=== PATIENT | female | born 1990 | race Hispanic/Latino ===

== ENCOUNTER 2018-05-28 05:02 | Inpatient (IN) | payer OTHER, MEDICAID, BC | END 2018-05-30 12:25 | disposition home or self-care (01) | LOC: LDH 05:02 → WSH 08:45 | PROC: 10D00Z1 Extraction of Products of Conception, Low, Open Approach (ICD-10-PCS; principal; 2018-05-28 06:30) | PROC: 0UL70ZZ Occlusion of Bilateral Fallopian Tubes, Open Approach (ICD-10-PCS; 2018-05-28 06:30) | DX: O34.211 Maternal care for low transverse scar from previous cesarean delivery (principal); N85.8 Other specified noninflammatory disorders of uterus; Z37.0 Single live birth ==

== ENCOUNTER 2024-12-13 01:24 | Inpatient (IN) | payer MEDICAID, OTHER ==
[2024-12-13] VITALS (8 sets, daily range): BP systolic 91–102; BP diastolic 58–63; PULSE 72–107; RESP 16–20; TEMP 97.5–98.2; O2SAT 99–100
[~2024-12-13] VITALS: Ht 154.9 cm; Wt 67.4 kg
[~2024-12-13 01:24] MED LIST: CEPH500B PO
--- NOTE | 2024-12-13 01:25 | NUR ---
UA CUP PROVIDED
--- NOTE | 2024-12-13 01:27 | NUR ---
CALLED FOR EKG
[2024-12-13 01:38] LABS: ADD UA MICROSCOPIC YES; APPEARANCE,URINE CLOUDY (CLEAR); GLUCOSE, URINE (UA) NEGATIVE (NEGATIVE); LEUKOCYTE ESTERASE ,URINE 25 Leu/uL (NEGATIVE); NITRATE,URINE 2+ (NEGATIVE); OCCULT BLOOD,URINE NEGATIVE (NEGATIVE)
[2024-12-13 01:40] LABS: HCG,QUALITATIVE URINE NEGATIVE (NEGATIVE)
[2024-12-13 01:41] LABS: SQUAMOUS EPITHELIAL CELL,UR FEW /HPF (0-2)
--- NOTE | 2024-12-13 01:43 | EKG ---
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
[2024-12-13 01:50] LABS: IMMATURE GRANULOCYTE ABSOLUTE 0.03 K/uL (0-1); NUCLEATED RED BLOOD CELLS 0.0 % (0.0-0.19); PLATELET COUNT (AUTO) 250 K/uL (130-400); RED BLOOD CELL COUNT(AUTO) 4.54 MIL/uL (4.00-5.50); RED CELL DISTRIBUTION WIDTH 14.8 % (11.0-15.5); WHITE BLOOD COUNT (AUTO) 9.1 K/uL (4.8-10.8)
[2024-12-13 02:00] LABS: CREATININE 0.4 mg/dL (0.5-1.0); GLOMERULAR FILTR. RATE CALC 133.0 mL/min (>90); GLUCOSE,RANDOM 102.0 mg/dL (70-105); SODIUM SERUM 141.0 mmol/L (136-145); UREA NITROGEN, BLOOD 11.0 mg/dL (7-18)
[2024-12-13 02:05] LABS: CREATINE KINASE, TOTAL 43.0 U/L (21-232)
--- NOTE | 2024-12-13 02:19 | NUR ---
REPORT TO DARREN EUCEDA
--- NOTE | 2024-12-13 02:37 | ERN ---
ED Note History of Present Illness Stated Complaint: CHEST PAIN Chief Complaint: Chest Pain Time Seen by MD: 01:20 Dictation: This is a 34-year-old who presented to the complaint midsternal stabbing chest pain for past 3 days she also reported nausea associated with. No history of a ny diaphoresis, syncopal episode palpitations. Patient is not a smoker. No history of oral contraceptives. No history of any sudden deaths in the family at a young age no history of any hypercoagulable states. No leg swelling or pain. Most of her presentation has been upper abdominal pain with cramping and midsternal radiating all the way to the back. She took Motrin and Pepcid and Gas-X with some relief of the abdominal symptoms but her chest symptoms persisted and hence she came in for evaluation. The symptoms that began 3 days ago were around 3:00 a.m. when she ate and laid down immediately. Temperature 98.8 pulse 93 respirations 16 blood pressure 124/83 with a pulse oximetry of 98% on room air Allergies: Coded Allergies: naproxen (Verified Allergy, 12/04/12) Home Meds Reported Medications Cephalexin Monohydrate (Keflex) 500 Mg Cap, 500 MG PO QID, CAP 05/28/18 Past Medical History Past Medical History: No Pertinent History Surgical History: BTL, Family History: Negative LMP: Oct 27, 2024 : 2 Para: 2 RN Note Reviewed/Agreed w/PFSH: Yes Review of System Dictation Constitutional: Negative for fever,chills, and weight loss Eyes: Negative for injury, pain,redness, and discharge ENT: Negative for injury,pain or swelling Cardiovascular: Positive for mid chest pain, denies palpitations, and edema Respiratory: Negative for shortness of breath, cough, and wheezing, Abdomen/GI: Positive for epigastric abdominal pain, , vomiting, diarrhea, and c onstipation positive for nausea Back: Negative for injury and positive for pain all over with the back : Negative for injury, bleeding and discharge MS/Extremity: Negative for injury and deformity Skin: Negative for rash, and discoloration Neuro: Negative for headache, weakness, numbness, tingling, and seizure Psych: Negative for suicide ideation, homicidal ideation, and hallucinations Initial Vital Sign VS Vital Signs Date Time Temp Pulse Resp B/P (MAP) Pulse Ox O2 Delivery O2 Flow Rate FiO2 12/13/24 01:25 98.8 93 16 124/83 98 Room Air 12/13/24 04:38 0 21 Physical Exam Dictation General: awake, alert, NAD Head/Face: Normocephalic, atraumatic Eyes: PERRL, EOMI, vision at baseline ENT: oral cavity clear, TMs clear, no signs of infection Neck: Trachea midline, supple, no nuchal rigidity Cardiovascular: RRR, normal S1/S2, No MRGs, no JVD Respiratory: CTAB, no respiratory distress, No rales or wheezes Abdomen: Soft, mild tenderness in the epigastric area and right upper quadrant, non-distended, normal bowel sounds, no guarding or rebound. Skin: Warm, dry, normal turgor, no rash MS/Extremity: Pulses equal, no cyanosis, neurovascular intact, FROM Neuro: COAx4, GCS 15, strength 5/5, CN 2-12 intact, normal cerebellar exam, normal gait, Psych: Normal behavior, mood, and affect normal Extremities-trace edema without any palpable cords, Homans sign is negative Results (Laboratory/Radiology) Laboratory/Radiology Laboratory Tests Test 12/13/24 01:30 12/13/24 01:36 Urine Color YELLOW (YELLOW) Urine Appearance CLOUDY (CLEAR) H Urine pH 6.0 (5.0-8.0) Urine Specific [place] 1.027 (1.001-1.031) Urine Protein 20 mg/dL (NEGATIVE) H Urine Glucose (UA) NEGATIVE mg/dL (NEGATIVE) Urine Ketones 150 mg/dL (NEGATIVE) H Urine Occult Blood NEGATIVE (NEGATIVE) Urine Nitrate 2+ (NEGATIVE) H Urine Bilirubin NEGATIVE mg/dL (NEGATIVE) Urine Urobilinogen 4.0 mg/dL (0.2-1.0) H Urine Leukocyte Esterase 25 Alex/uL (NEGATIVE) H Urine RBC 2-5 /HPF (0-1) H Urine WBC 11-25 /HPF (0-1) H Urine Squamous Epithelial Cells FEW /HPF (0-2) Urine Bacteria MOD /HPF (None Seen) Urine HCG, Qualitative NEGATIVE (NEGATIVE) Urine Opiates Screen NEGATIVE (NEGATIVE) Urine Barbiturates Screen NEGATIVE (NEGATIVE) Urine Phencyclidine Screen NEGATIVE (NEGATIVE) Urine Amphetamines Screen NEGATIVE (NEGATIVE) Urine Benzodiazepines Screen NEGATIVE (NEGATIVE) Urine Cocaine Screen NEGATIVE (NEGATIVE) Urine Marijuana (THC) Screen NEGATIVE (NEGATIVE) White Blood Count 9.1 K/uL (4.8-10.8) Red Blood Count 4.54 MIL/uL (4.00-5.50) Hemoglobin 11.0 g/dL (12.0-16.0) L Hematocrit 34.2 % (36-48) L Mean Corpuscular Volume 75.3 fL (79-99) L Mean Corpuscular Hemoglobin 24.2 pg (27.0-33.0) L Mean Corpuscular Hemoglobin Concent 32.2 g/dL (32.0-36.0) Red Cell Distribution Width 14.8 % (11.0-15.5) Platelet Count 250 K/uL (130-400) Mean Platelet Volume 11.3 fL (7.5-10.5) H Immature Granulocyte % (Auto) 0.3 % (0-1) Neutrophils (%) (Auto) 75.0 % (40.0-77.0) Lymphocytes (%) (Auto) 17.8 % (21.0-51.0) L Monocytes (%) (Auto) 6.1 % (3.0-13.0) Eosinophils (%) (Auto) 0.4 % (0.0-8.0) Basophils (%) (Auto) 0.4 % (0.0-5.0) Neutrophils # (Auto) 6.8 K/uL (1.8-7.7) Lymphocytes # (Auto) 1.6 K/uL (1.0-4.8) Monocytes # (Auto) 0.6 K/uL (0.1-1.0) Eosinophils # (Auto) 0.04 K/uL (0.00-0.70) Basophils # (Auto) 0.04 K/uL (0.00-0.20) Absolute Immature Granulocyte (auto 0.03 K/uL (0-1) Nucleated Red Blood Cells 0.0 % (0.0-0.19) Red Blood Cell Morphology See comments Sodium Level 141 mmol/L (136-145) Potassium Level 3.6 mmol/L (3.5-5.1) Chloride Level 103 mmol/L (101-111) Carbon Dioxide Level 27 mmol/L (21-32) Blood Urea Nitrogen 11 mg/dL (7-18) Creatinine 0.4 mg/dL (0.5-1.0) L Glomerular Filtration Rate Calc 133 mL/min (>90) Random Glucose 102 mg/dL (70-105) Total Calcium 9.3 mg/dL (8.5-10.1) Total Creatine Kinase 43 U/L (21-232) # Troponin I High Sensitivity < 4 ng/L (4-50) L Labs Reviewed?: Yes EKG Comment: Twelve lead EKG done on 12/13/2024 at 1:39 a.m. showed a heart rate of 86, DE interval 126, QRS duration 82, QT/QTC 358/429. Impression-normal sinus rhythm with no acute STT wave changes but nonspecific changes seen. No ST elevations or deep ST depressions noted. EKG rhythm strip-normal sinus rhythm nonspecific ST-T changes Interpreted by ER MD Dr. Harrison X-RAY Comment: PATIENT: SOL GARCIA MR#: [id number] : 1990 SEX: F AGE: 34 LOCATION: [facility] ORDER 5 STATUS: REG ER REPORT#: [id number] SERVICE 5 REASON: CHEST PAIN ORDERING PHYSICIAN: LELAND HARRISON MD PROCEDURE: CXR1VW - CHEST 1VW EXAM: CR Chest, 1 view CLINICAL HISTORY: Chest pain. COMPARISON: Chest radiograph dated 12/16/2014. FINDINGS: The lungs show no infiltrates or other acute findings. No pleural effusion or pneumothorax. The cardiomediastinal silhouette is within normal limits. No acute osseous abnormality. Mild levocurvature of the thoracic spine. IMPRESSION: No acute cardiopulmonary process is evident. No interval changes. /[place] DICTATED BY: DEEPALI URENA Jr., MD DATE: 12/13/24400 ELECTRONICALLY SIGNED BY: DEEPALI URENA Jr., MD DATE: 12/13/24400 ED Course ED Course Orders Procedure Category Date Status Time Vital Signs Per CPOE 12/13/24 Transmitted Routine : Chest 1vw RAD 12/13/24 Resulted 01: 12 Lead Ekg Tracing- EKG 12/13/24 Complete Technical 01:26 Maintain Iv CPOE 12/13/24 Transmitted 01:26 Iv Insertion CPOE 12/13/24 Transmitted 01: Cbc With Differential LAB 12/13/24 Complete 01:26 Creatine Kinase, Total LAB 12/13/24 Complete 01: Troponin I High LAB 12/13/24 Complete Sensitivity 01:26 Urinalysis Profile LAB 12/13/24 Complete 01:26 Basic Metabolic Panel LAB 12/13/24 Complete 01:26 ,Urine Test LAB 12/13/24 Complete 01: Culture Urine [place] 12/13/24 In Process 01:38 Drug Screen Urine LAB 12/13/24 Complete 02:36 Ceftriaxone 1g Vial PHA 12/13/24 Complete (Rocephine 1g Inj) 03:00 Morphine 2mg Syg PHA 12/13/24 Complete (Morphine 2mg Syg) 03:00 Ondansetron 4mg Inj PHA 12/13/24 Complete (Zofran 4mg Inj) 03:00 Lidocaine Hcl 2% PHA 12/13/24 Complete Viscous (Lidocaine Hcl 03:00 Mag/Alum/Simeth 30ml PHA 12/13/24 Complete (Maalox Plus 30ml) 03:00 Dicyclomine Hcl PHA 12/13/24 Complete (Bentyl 10mg/5ml 03:00 Pantoprazole 40mg Tab PHA 12/13/24 Complete (Protonix 40mg Tab 03:00 Us Abdominal Ruq\Ltd US 12/13/24 Taken 03:25 Amp/Sulbac 1.5gm+Ns PHA 12/13/24 Complete 100ml (Unasyn 1.5gm+ 04:30 Edm Admit Bridge Order ADM 12/13/24 Transmitted 04:47 Current Medications Medications (Trade) Dose Ordered Sig/Connie Route PRN Reason Start Time Stop Time Status Last Admin Dose Admin Al Hydroxide/Mg Hydroxide (MAALox PLUS 30ML) 30 ml ONCE ONCE PO 12/13/24 03:00 12/13/24 03:01 DC 12/13/24 02:57 Ampicillin Sodium/ Sulbactam Sodium (Unasyn 1.5gm+NS 100ml) 1.5 gm ONCE ONCE IV 12/13/24 04:30 12/13/24 04:32 DC 12/13/24 04:42 Ceftriaxone Sodium (ROCEphine 1G INJ) 1 gm ONCE ONCE IVPB 12/13/24 03:00 12/13/24 03:01 DC 12/13/24 02:44 Dicyclomine HCl (Bentyl 10mg/5ml Syrup) 10 mg ONCE ONCE PO 12/13/24 03:00 12/13/24 03:01 DC 12/13/24 02:58 Lidocaine HCl (Lidocaine HCl 2% Viscous) 10 ml ONCE ONCE PO 12/13/24 03:00 12/13/24 03:01 DC 12/13/24 02:58 Morphine Sulfate (morPHINE 2MG SYG) 2 mg ONCE ONCE IVP 12/13/24 03:00 12/13/24 03:01 DC 12/13/24 02:44 Ondansetron HCl (zoFRAN 4MG INJ) 4 mg ONCE ONCE IVP 12/13/24 03:00 12/13/24 03:01 DC 12/13/24 02:57 Pantoprazole Sodium (PROTonix 40MG TAB) 40 mg ONCE ONCE PO 12/13/24 03:00 12/13/24 03:01 DC 12/13/24 02:58 Vital Signs Date Time Temp Pulse Resp B/P (MAP) Pulse Ox O2 Delivery O2 Flow Rate FiO2 12/13/24 04:38 98.4 69 17 113/70 100 Room Air* 0 21 12/13/24 01:25 98.8 93 16 124/83 98 Room Air We will perform diagnostic labs, advanced imaging and administer medications according to the patient's complaint. Once the results are available, will rev iew and personally interpreted the labs to rule out any acute life-threatening emergency the trach require immediate intervention and treatment. I will then re-evaluate the patient after treatment and diagnostic exams have return to determine whether the patient requires any further testing, can safely be discharged home or need further admission to hospital for additional treatment and evaluation. Labs reviewed CBC showed a hemoglobin of 11, BNP 7 is with a normal limits. Troponins are negative. UDS is negative Urinalysis shows positive leuko esterase nitrites and increased WBCs suggestive of a UTI. I had a long discussion with the patient and discussed the possibilities that this may simply be esophagitis along with gastritis or biliary colic,. This is quite atypical for cardiac etiology in the pain lasting for a long time with a pristine EKG. Patient's Wells score is extremely low. I have recommended that we should give a trial of GI cocktail, PPI and assess the response and she is agreeable 4:20 a.m. right upper quadrant ultrasound showed very dilated gallbladder with the inflammation with a gallstone consistent with the acute cholecystitis. I updated the patient and recommended admission to the hospital for further management and she is agreeable 4:45 a.m. patient accepted by [facility] provider for hospitalist group for admission and further management HEART Score Response (Comments) Value History: Low suspicion (0) 0 EKG: Normal 0 Age: < 45yrs (0) 0 Risk Factors: No known risk factors (0) 0 Initial Troponin: Normal limit (0) 0 HEART Score Risk: Low Risk for MACE (1-3) Total 0 Medical Decision Making MDM Differential diagnosis: Atypical chest pain, cholecystitis, esophagitis gastritis, chest wall pain, hiatal hernia, biliary colic and cholelithiasis Rationale: Tests considered and ordered secondary to shared decision making include: labs, ECG and radiology Previous outside records reviewed: Old ER visits. Risk of complication and/or morbidity or mortality of patient management: None Medications-Per medication reconciliation Need for hospitalization: Patient does meet criteria for hospitalization. Need for emergency major/minor surgery: No There are no social concerns with this patient. Prescription drug management Prescriptions will include symptomatic care Patient's prior external medical records from other ER visits were reviewed by me as indicated. Prior testing and results from previous visits were reviewed. Prior tests were taken into account with medical decision making and resource utilization, independent historian/historians were used to obtain complete medical history. I independently interpreted the test that were performed, results were reviewed by me and considered findings on radiology if ordered. Medical management and examination interpretation discussions were had by me with other qualified healthcare professionals as indicated for the patient's care. Problem List Problem List: (1) Atypical chest pain (2) Esophagitis (3) Gastritis (4) UTI (urinary tract infection) DX & DISP Disposition: Inpatient Decision to Admit Time: 04:48 Departure Impression: Primary Impression: Acute cholecystitis due to biliary calculus Additional Impressions: Atypical chest pain, Gastritis, Esophagitis, UTI (urinary tract infection) Condition: Stable Additional Instructions: Patient was informed of all the diagnostic labs and procedures conducted in the emergency room today and demonstrated understanding of the results. I personally reviewed and interpreted all the diagnostic exams performed in the ER today. The patient will be admitted to the hospital for further treatment and evaluation. Disposition-admit to facility Condition-stable/guarded Course-uncertain at this time Pain status-decreased Assessment-exam unchanged Admission Certification- I certify that the patients status is appropriate and is based on my best clinical judgment and the patient's condition as documented in the medical records Referrals: HARRISON ROBLES MD (PCP) LELAND HARRISON MD Dec 13, 2024 02:37
[2024-12-13] MEDS: MAG/ALUM/SIMETH 30 ML UDCUP PO ONE (02:57)
[2024-12-13] MEDS: DICYCLOMINE HCL 10 MG/5 ML ML PO ONE (02:58)
[2024-12-13] MEDS: LIDOCAINE HCL 2% VISCOUS 15 ML UDCUP PO ONE (02:58)
[2024-12-13 03:00] LABS: AMPHET/METH SCREEN,URINE NEGATIVE (NEGATIVE); BARBITURATE SCREEN, URINE NEGATIVE (NEGATIVE); CANNABINOID SCREEN,URINE NEGATIVE (NEGATIVE); COCAINE SCREEN,URINE NEGATIVE (NEGATIVE)
--- NOTE | 2024-12-13 03:02 | HMCIMG ---
EXAM: CR Chest, 1 view CLINICAL HISTORY: Chest pain. COMPARISON: Chest radiograph dated 12/16/2014. FINDINGS: The lungs show no infiltrates or other acute findings. No pleural effusion or pneumothorax. The cardiomediastinal silhouette is within normal limits. No acute osseous abnormality. Mild levocurvature of the thoracic spine. IMPRESSION: No acute cardiopulmonary process is evident. No interval changes. /[place]
--- NOTE | 2024-12-13 04:39 | NUR ---
PATIENT REPORTS SHE DOES NOT TAKE ANY PRESCRIBED MEDICATIONS
[2024-12-13] MEDS: UNASYN 1.5GM+NS 100ML IV ONE (04:42)
--- NOTE | 2024-12-13 05:11 | HMCIMG ---
EXAM: Ultrasound Abdomen, Right Upper Quadrant. CLINICAL HISTORY: Evaluate for cholelithiasis. TECHNIQUE: Right upper quadrant sonography performed with image documentation. COMPARISON: None provided. FINDINGS: LIVER: The liver measures 14.3 cm. Normal echogenicity. No focal lesion identified. GALLBLADDER: Distended gallbladder measuring 14.7 cm with a 2 cm non-mobile stone impacted at the neck. Gallbladder wall thickening with edema (5 mm). Multiple gallstones and sludge noted. COMMON BILE DUCT (CBD): Dilated to 6 mm, which is at the upper limit of normal. Proximal ductal obstruction is suspected, possibly by the gallstones. PANCREAS: The tail is obscured by bowel gas. The visualized portion of the pancreas is unremarkable. RIGHT KIDNEY: Measures 12.4 ??? 4.5 ??? 4.3 cm. Normal renal contours. No evidence of hydronephrosis, calculi, or mass. IMPRESSION: Cholelithiasis with acute cholecystitis. Borderline dilatation of the CBD could be secondary to proximal ductal obstruction by the gallstones. /[place]
[2024-12-13] MEDS: LACTATED RINGERS 1000ML 1,000 ML IV SCH (05:28)
--- NOTE | 2024-12-13 05:28 | HP ---
[facility] HISTORY AND PHYSICAL Date of Service: Dec 13, 2024 Time of Service: 05:28 Attending/supervising physicians: Dr. Jason and Dr. Duque HISTORY OF PRESENT ILLNESS: Ms Gamal Black is a 34-year-old who presented to the complaint upper abdominal, epigastric, midsternal stabbing chest pain and nausea for past 3 days. The patient denied diaphoresis, syncopal episode, or palpitations. Patient is not a smoker. No history of oral contraceptions. Most of her presentation has been upper abdominal pain with cramping and midsternal radiating all the way to the back. She took Motrin and Pepcid and Gas-X with some relief of the abdominal symptoms but her chest symptoms persisted and hence she came in for evaluation. The symptoms that began 3 days ago were around 3:00 a.m. when she ate and laid down immediately. WBC, troponin, and chest x-ray are WNL. UA was positive for leuk EST and nitrites. ED provider reports that the sonogram showed cholelithiasis and acute cholecystitis and request admission. In ED the patient received Unasyn IV, Rocephin IV Protonix, Bentyl, Maalox, viscous lidocaine, Zofran, and morphine. I assessed the patient at bedside. The patient appeared comfortable, breathing was even, unlabored, in no distress. Patient reports the pain has improved after the medications but still feels a little sore. I informed her of labs, diagnostics, and plan of care. She verbalizes understanding and is in agreement with the plan. Plan and assessment are listed below. REVIEW OF SYSTEMS 12-point ROS reviewed with the patient. All pertinent positives mentioned above. Otherwise negative, noncontributory, non-pertinent. PAST MEDICAL HISTORY: As mentioned above LMP 10/27/2024, two para two. PAST SURGICAL HISTORY: BTL, PAST SOCIAL HISTORY: Denied alcohol, two back 0 use, illicit drug use FAMILY HISTORY: Negative Coded Allergies: naproxen (Verified Allergy, 12/04/12) PHYSICAL EXAM GENERAL APPEARANCE: The patient is awake, alert, and oriented, in no acute cardiopulmonary distress. NEUROLOGICAL: Cranial nerves II-XII grossly intact. Motor is 5/5 in bilateral upper and lower extremities proximal to distal. No sensory deficits. HEENT: Face is symmetric. Pupils are equal and reactive. Extraocular movements are intact. NECK: Supple. No JVD. No thyromegaly. No submental, submandibular, pre- /postauricular, occipital or supraclavicular lymphadenopathy. CHEST: Normal chest expansion. No Telemetry. LUNGS: Absence of any rales, rhonchi or any wheezing. CARDIOVASCULAR: Regular. S1 and S2 normal. No appreciable rubs, murmurs or gallops. ABDOMEN: Abdominal tenderness, Soft, and nondistended. There is no rebound, voluntary guarding, or rigidity. : Deferred. No [place]. EXTREMITIES: Non-edematous and not cyanotic. No clubbing. Good capillary refill. SKIN: No skin breakdown. Vital Sign (Last 24 Hours) 12/13/24 04:38 Temp 98.4 Pulse 69 Resp 17 B/P (MAP) 113/70 Pulse Ox 100 O2 Delivery Room Air* O2 Flow Rate 0 FiO2 21 LABS: Laboratory: Test 12/13/24 01:36 12/13/24 01:30 Range/Units White Blood Count 9.1 4.8-10.8 K/uL Red Blood Count 4.54 4.00-5.50 MIL/uL Hemoglobin 11.0 L 12.0-16.0 g/dL Hematocrit 34.2 L 36-48 % Mean Corpuscular Volume 75.3 L 79-99 fL Mean Corpuscular Hemoglobin 24.2 L 27.0-33.0 pg Mean Corpuscular Hemoglobin Concent 32.2 32.0-36.0 g/dL Red Cell Distribution Width 14.8 11.0-15.5 % Platelet Count 250 130-400 K/uL Mean Platelet Volume 11.3 H 7.5-10.5 fL Immature Granulocyte % (Auto) 0.3 0-1 % Neutrophils (%) (Auto) 75.0 40.0-77.0 % Lymphocytes (%) (Auto) 17.8 L 21.0-51.0 % Monocytes (%) (Auto) 6.1 3.0-13.0 % Eosinophils (%) (Auto) 0.4 0.0-8.0 % Basophils (%) (Auto) 0.4 0.0-5.0 % Neutrophils # (Auto) 6.8 1.8-7.7 K/uL Lymphocytes # (Auto) 1.6 1.0-4.8 K/uL Monocytes # (Auto) 0.6 0.1-1.0 K/uL Eosinophils # (Auto) 0.04 0.00-0.70 K/uL Basophils # (Auto) 0.04 0.00-0.20 K/uL Absolute Immature Granulocyte (auto 0.03 0-1 K/uL Nucleated Red Blood Cells 0.0 0.0-0.19 % Red Blood Cell Morphology See comments Sodium Level 141 136-145 mmol/L Potassium Level 3.6 3.5-5.1 mmol/L Chloride Level 103 101-111 mmol/L Carbon Dioxide Level 27 21-32 mmol/L Blood Urea Nitrogen 11 7-18 mg/dL Creatinine 0.4 L 0.5-1.0 mg/dL Glomerular Filtration Rate Calc 133 >90 mL/min Random Glucose 102 70-105 mg/dL Total Calcium 9.3 8.5-10.1 mg/dL Total Creatine Kinase 43 # 21-232 U/L Troponin I High Sensitivity < 4 L 4-50 ng/L Urine Color YELLOW YELLOW Urine Appearance CLOUDY H CLEAR Urine pH 6.0 5.0-8.0 Urine Specific [place] 1.027 1.001-1.031 Urine Protein 20 H NEGATIVE mg/dL Urine Glucose (UA) NEGATIVE NEGATIVE mg/dL Urine Ketones 150 H NEGATIVE mg/dL Urine Occult Blood NEGATIVE NEGATIVE Urine Nitrate 2+ H NEGATIVE Urine Bilirubin NEGATIVE NEGATIVE mg/dL Urine Urobilinogen 4.0 H 0.2-1.0 mg/dL Urine Leukocyte Esterase 25 H NEGATIVE Alex/uL Urine RBC 2-5 H 0-1 /HPF Urine WBC 11-25 H 0-1 /HPF Urine Squamous Epithelial Cells FEW 0-2 /HPF Urine Bacteria MOD None Seen /HPF Urine HCG, Qualitative NEGATIVE NEGATIVE Urine Opiates Screen NEGATIVE NEGATIVE Urine Barbiturates Screen NEGATIVE NEGATIVE Urine Phencyclidine Screen NEGATIVE NEGATIVE Urine Amphetamines Screen NEGATIVE NEGATIVE Urine Benzodiazepines Screen NEGATIVE NEGATIVE Urine Cocaine Screen NEGATIVE NEGATIVE Urine Marijuana (THC) Screen NEGATIVE NEGATIVE Current Medications Medications (Trade) Dose Ordered Sig/Connie Route PRN Reason Start Time Stop Time Status Last Admin Dose Admin Acetaminophen (TYLenol 325MG TAB) 650 mg Q6H PRN PO FEVER/MILD PAIN LEVEL 1-3 12/13/24 05:30 01/12/25 05:29 Acetaminophen (TYLenol 650MG SUPPOSITORY) 650 mg Q6H PRN RC FEVER / MILD PAIN 1-3 IF NPO 12/13/24 05:30 01/12/25 05:29 Docusate Sodium (COLace 100MG CAP) 100 mg BID PRN PO c 12/13/24 05:30 01/12/25 05:29 Ketorolac Tromethamine (toRADol) 30 mg Q6H PRN IM SEVERE PAIN (7-10) 12/13/24 05:30 12/18/24 05:29 UNV Labetalol HCl (TRANdate 20MG SYG) 10 mg Q2H PRN IV SBP GREATER THAN 160 12/13/24 05:30 01/12/25 05:29 Lactated Ringer's 1,000 ml @ 75 mls/hr [id number] IV 12/13/24 05:30 01/12/25 05:29 12/13/24 05:28 75 MLS/HR Lactulose (Constulose 20gm/ 30ml Udcup) 20 gm Q6H PRN PO CONSTIPATION 12/13/24 05:30 01/12/25 05:29 Morphine Sulfate (morPHINE 4MG SYG) 4 mg Q4H PRN IVP SEVERE PAIN (7-10) 12/13/24 05:30 12/20/24 05:29 Ondansetron HCl (zoFRAN 4MG INJ) 4 mg Q6H PRN IVP NAUSEA/VOMITING 12/13/24 05:30 01/12/25 05:29 Temazepam (restORIL 15 MG CAP) 15 mg HS PRN PO INSOMNIA/SLEEP 12/13/24 05:30 01/12/25 05:29 DIAGNOSTICS / RADIOLOGY: [ ] ASSESSMENT: Acute cholecystitis with biliary calculus, POA Acute abdominal pain/Epigastric pain/sternal chest pain, POA Acute complicated cystitis, POA Anemia PLAN: -Admit to medical floor. -Consult general surgeon. -Keep NPO for now. -Start LR at 75 mL an hour. -Zosyn 3.375 g IV Q8H. -PRN medications for: Pain management, fever, hypertension, N/V, constipation. -prn glucometer checks. -Blood pressure checks every 4 hours and as needed. -Reconcile home medications once available. - Monitor renal and liver function. -Monitor electrolytes and treat accordingly PRN -AM labs. -GI and DVT prophylaxis -Further plan/orders per hospitalization course. ADVANCED CARE PLANNING 1. Which of the following were discussed? Hospice Care - No Therapeutic options - Yes Advance Directives - Yes Other discussions - 2. Discussed with who? Patient 3. Voluntary nature of this service was explained to the patient? Yes 4. Amount of time spent - _ Over 35 minutes 5. Reviewed by Physician? (if this service was performed by BENEDICTO) Yes ATTESTATION BY PHYSICIAN I have seen and examined the patient. I reviewed the documentation, medical decision making, and treatment plan as noted by the mid-level provider above. I agree with the findings and plan of care. BRODY GAMINO [facility] Dec 13, 2024 05:28
[2024-12-13] MEDS ORDERED: DEXTROSE 50%-WATER 50 ML DISP.SYRIN IV PRN (06:00)
[2024-12-13] MEDS ORDERED: PoTASSium chl 10% ELIXIR 20MEQ 20 MEQ/15 ML UDCUP PO PRN (06:00)
[2024-12-13] MEDS ORDERED: GLUCAGON 1MG KIT 1 MG ML IM PRN (06:00)
--- NOTE | 2024-12-13 06:29 | NUR ---
DR BRIJESH CLARK MADE AWARE OF SURGICAL CONSULT
--- NOTE | 2024-12-13 07:44 | NUR ---
Patient stated she does not take any home medications.
--- NOTE | 2024-12-13 08:12 | NUR ---
Called housekeeping for hospital bed.
--- NOTE | 2024-12-13 08:41 | NUR ---
Changed stetcher to hospital bed
--- NOTE | 2024-12-13 09:23 | NUR ---
Patient is NPO. Potasium 3.6. Did not cover due to protocol IV starts at below 3.2.
--- NOTE | 2024-12-13 09:24 | NUR ---
Report given to Mrs. Marilu PAGE. Discussed plan of care, medication and pending consult with Dr. Cooper. Mys. Michel verbalized understanding. SBAR in chart. Patient transported in hospital bed.
[2024-12-13] MEDS: ZOSYN 3.375GM +NS 50ML IVPB SCH (12:30)
[2024-12-13] MEDS ORDERED: 0.9%NACL 50ML IV SCH (13:00)
--- NOTE | 2024-12-13 15:58 | PN ---
[facility] PROGRESS NOTE Date of Service: Dec 13, 2024 Time of Service: 15:35 SUBJECTIVE: 12/13/24: Patient has been moved from the emergency department to room 306. Patient examined in the room with family present. Patient appeared comfortable, in no distress. Patient reports the pain has improved after the medications but still feels a little sore. She does not have any nausea. Waiting on the surgeon Dr. Smith for further treatment recommendations. She is currently on Zosyn IV, Toradol for pain. REVIEW OF SYSTEMS CONSTITUTIONAL: Denies fever, chills, or night sweats. No unintentional weight loss reported. NEUROLOGICAL: Denies headache, amaurosis fugax, motor weakness, sensory deficit, vertigo/spinning sensation, gait abnormalities, or tremors. ENT: No hearing loss, otalgia, otorrhea, rhinitis, rhinorrhea, hoarseness, or sore throat. CARDIOVASCULAR: Denies any exertional angina, dyspnea on exertion, orthopnea, paroxysmal nocturnal dyspnea PULMONARY: shortness of breath, Denies any cough, phlegm/sputum, hemoptysis, pleuritic chest pain. GASTROINTESTINAL: Denies any type of dysphagia to either liquids or solids. Denies nausea, vomiting, pyrosis, early satiety, abdominal pain, diarrhea, constipation, or changes in stool consistency or caliber. GENITOURINARY: Denies frequency, urgency, nocturia, hematuria or incontinence DERMATOLOGIC: Denies rashes or pruritus. PHYSICAL EXAM GENERAL APPEARANCE: The patient is awake, alert, and oriented, in no acute cardiopulmonary distress. NEUROLOGICAL: Motor is 5/5 in bilateral upper and lower extremities proximal to distal. No sensory deficits. HEENT: Face is symmetric. Pupils are equal and reactive. Extraocular movements are intact. NECK: Supple. No JVD. No lymphadenopathy. CHEST: Normal chest expansion. No Telemetry. LUNGS: Absence of any rales, rhonchi or any wheezing. CARDIOVASCULAR: Regular. S1 and S2 normal. No appreciable rubs, murmurs or gallops. ABDOMEN: Abdominal tenderness, Soft, and nondistended. There is no rebound, voluntary guarding, or rigidity. : Deferred. No Wright. EXTREMITIES: Non-edematous and not cyanotic. No clubbing. Good capillary refill. SKIN: No skin breakdown. Vital Signs (last 8hr) Date Time Temp Pulse Resp B/P (MAP) Pulse Ox O2 Delivery O2 Flow Rate FiO2 12/13/24 12:00 97.9 73 18 102/63 100 Room Air 21 12/13/24 10:00 Room Air* 0 21 12/13/24 09:40 98.2 74 19 96/59 99 Room Air 21 12/13/24 08:50 100 Room Air* 0 21 LABS: Laboratory: Test 12/13/24 01:36 12/13/24 01:30 Range/Units White Blood Count 9.1 4.8-10.8 K/uL Red Blood Count 4.54 4.00-5.50 MIL/uL Hemoglobin 11.0 L 12.0-16.0 g/dL Hematocrit 34.2 L 36-48 % Mean Corpuscular Volume 75.3 L 79-99 fL Mean Corpuscular Hemoglobin 24.2 L 27.0-33.0 pg Mean Corpuscular Hemoglobin Concent 32.2 32.0-36.0 g/dL Red Cell Distribution Width 14.8 11.0-15.5 % Platelet Count 250 130-400 K/uL Mean Platelet Volume 11.3 H 7.5-10.5 fL Immature Granulocyte % (Auto) 0.3 0-1 % Neutrophils (%) (Auto) 75.0 40.0-77.0 % Lymphocytes (%) (Auto) 17.8 L 21.0-51.0 % Monocytes (%) (Auto) 6.1 3.0-13.0 % Eosinophils (%) (Auto) 0.4 0.0-8.0 % Basophils (%) (Auto) 0.4 0.0-5.0 % Neutrophils # (Auto) 6.8 1.8-7.7 K/uL Lymphocytes # (Auto) 1.6 1.0-4.8 K/uL Monocytes # (Auto) 0.6 0.1-1.0 K/uL Eosinophils # (Auto) 0.04 0.00-0.70 K/uL Basophils # (Auto) 0.04 0.00-0.20 K/uL Absolute Immature Granulocyte (auto 0.03 0-1 K/uL Nucleated Red Blood Cells 0.0 0.0-0.19 % Red Blood Cell Morphology See comments Sodium Level 141 136-145 mmol/L Potassium Level 3.6 3.5-5.1 mmol/L Chloride Level 103 101-111 mmol/L Carbon Dioxide Level 27 21-32 mmol/L Blood Urea Nitrogen 11 7-18 mg/dL Creatinine 0.4 L 0.5-1.0 mg/dL Glomerular Filtration Rate Calc 133 >90 mL/min Random Glucose 102 70-105 mg/dL Total Calcium 9.3 8.5-10.1 mg/dL Total Creatine Kinase 43 # 21-232 U/L Troponin I High Sensitivity < 4 L 4-50 ng/L Urine Color YELLOW YELLOW Urine Appearance CLOUDY H CLEAR Urine pH 6.0 5.0-8.0 Urine Specific [place] 1.027 1.001-1.031 Urine Protein 20 H NEGATIVE mg/dL Urine Glucose (UA) NEGATIVE NEGATIVE mg/dL Urine Ketones 150 H NEGATIVE mg/dL Urine Occult Blood NEGATIVE NEGATIVE Urine Nitrate 2+ H NEGATIVE Urine Bilirubin NEGATIVE NEGATIVE mg/dL Urine Urobilinogen 4.0 H 0.2-1.0 mg/dL Urine Leukocyte Esterase 25 H NEGATIVE Alex/uL Urine RBC 2-5 H 0-1 /HPF Urine WBC 11-25 H 0-1 /HPF Urine Squamous Epithelial Cells FEW 0-2 /HPF Urine Bacteria MOD None Seen /HPF Urine HCG, Qualitative NEGATIVE NEGATIVE Urine Opiates Screen NEGATIVE NEGATIVE Urine Barbiturates Screen NEGATIVE NEGATIVE Urine Phencyclidine Screen NEGATIVE NEGATIVE Urine Amphetamines Screen NEGATIVE NEGATIVE Urine Benzodiazepines Screen NEGATIVE NEGATIVE Urine Cocaine Screen NEGATIVE NEGATIVE Urine Marijuana (THC) Screen NEGATIVE NEGATIVE Current Medications Medications (Trade) Dose Ordered Sig/Connie Route PRN Reason Start Time Stop Time Status Last Admin Dose Admin Acetaminophen (TYLenol 325MG TAB) 650 mg Q6H PRN PO FEVER/MILD PAIN LEVEL 1-3 12/13/24 05:30 01/12/25 05:29 Acetaminophen (TYLenol 650MG SUPPOSITORY) 650 mg Q6H PRN RC FEVER / MILD PAIN 1-3 IF NPO 12/13/24 05:30 01/12/25 05:29 Ceftriaxone Sodium (Rocephin 2gm Inj) 2 gm Q24H IVPB 12/14/24 03:00 12/13/24 05:59 DC Dextrose (D50w) 50 ml AD PRN IV HYPOGLYCEMIA PROTOCOL 12/13/24 06:00 01/12/25 05:59 Docusate Sodium (COLace 100MG CAP) 100 mg BID PRN PO c 12/13/24 05:30 01/12/25 05:29 Glucagon (Glucagon 1mg Kit) 1 mg AD PRN IM HYPOGLYCEMIA PROTOCOL 12/13/24 06:00 01/12/25 05:59 Ketorolac Tromethamine (toRADol) 30 mg Q6H PRN IM SEVERE PAIN (7-10) 12/13/24 05:30 12/18/24 05:29 12/13/24 08:20 30 MG Labetalol HCl (TRANdate 20MG SYG) 10 mg Q2H PRN IV SBP GREATER THAN 160 12/13/24 05:30 01/12/25 05:29 Lactated Ringer's 1,000 ml @ 75 mls/hr [id number] IV 12/13/24 05:30 01/12/25 05:29 12/13/24 05:28 75 MLS/HR Lactulose (Constulose 20gm/ 30ml Udcup) 20 gm Q6H PRN PO CONSTIPATION 12/13/24 05:30 01/12/25 05:29 Magnesium Sulfate 50 ml @ 0 mls/hr PROTOCOL PRN IV MAGNESIUM PROTOCOL 12/13/24 06:00 01/12/25 05:59 Morphine Sulfate (morPHINE 4MG SYG) 4 mg Q4H PRN IVP SEVERE PAIN (7-10) 12/13/24 05:30 12/20/24 05:29 12/13/24 12:30 4 MG Ondansetron HCl (zoFRAN 4MG INJ) 4 mg Q6H PRN IVP NAUSEA/VOMITING 12/13/24 05:30 01/12/25 05:29 Piperacillin Sod/ Tazobactam Sod (Zosyn 3.375gm+NS 50ml) 3.375 gm Q8H IVPB 12/13/24 13:00 12/23/24 12:59 12/13/24 12:30 3.375 GM Potassium Chloride 100 ml @ 100 mls/hr AD PRN IV POTASSIUM PROTOCOL 12/13/24 06:00 01/12/25 05:59 Potassium Chloride (K-Dur/Klor-Con 20meq) 20 meq AD PRN PO POTASSIUM PROTOCOL 12/13/24 06:00 01/12/25 05:59 Potassium Chloride (KCl 10% Elixir 20meq/15ml) 20 meq AD PRN PO POTASSIUM PROTOCOL 12/13/24 06:00 01/12/25 05:59 Sodium Chloride (NS 50ml) 50 ml AD IV 12/13/24 13:00 12/13/24 05:58 DC Temazepam (restORIL 15 MG CAP) 15 mg HS PRN PO INSOMNIA/SLEEP 12/13/24 05:30 01/12/25 05:29 DIAGNOSTICS / RADIOLOGY: [facility] [address] [place] [address] IMAGING REPORT Addendum PATIENT: SOL GARCIA MR#: [id number] : 1990 SEX: F AGE: 34 LOCATION: [facility] ORDER 5 STATUS: ADM IN REPORT#: [id number] SERVICE 4 REASON: evaluate cholelithiasis ORDERING PHYSICIAN: AILYN HORTON MD PROCEDURE: [id number] - US ABDOMINAL RUQ\LTD ADDENDUM REPORT ADDENDUM: Results were shared by telephone at 06:13 am on 12-13-24 and acknowledged by Ailyn Jimenez. /[facility] EXAM: Ultrasound Abdomen, Right Upper Quadrant. CLINICAL HISTORY: Evaluate for cholelithiasis. TECHNIQUE: Right upper quadrant sonography performed with image documentation. COMPARISON: None provided. FINDINGS: LIVER: The liver measures 14.3 cm. Normal echogenicity. No focal lesion identified. GALLBLADDER: Distended gallbladder measuring 14.7 cm with a 2 cm non-mobile stone impacted at the neck. Gallbladder wall thickening with edema (5 mm). Multiple gallstones and sludge noted. COMMON BILE DUCT (CBD): Dilated to 6 mm, which is at the upper limit of normal. Proximal ductal obstruction is suspected, possibly by the gallstones. PANCREAS: The tail is obscured by bowel gas. The visualized portion of the pancreas is unremarkable. RIGHT KIDNEY: Measures 12.4 ??? 4.5 ??? 4.3 cm. Normal renal contours. No evidence of hydronephrosis, calculi, or mass. IMPRESSION: Cholelithiasis with acute cholecystitis. Borderline dilatation of the CBD could be secondary to proximal ductal obstruction by the gallstones. /[facility] DICTATED BY: DEEPALI URENA Jr., MD DATE: 12/13/24613 ELECTRONICALLY SIGNED BY: DATE: EXAM: Ultrasound Abdomen, Right Upper Quadrant. CLINICAL HISTORY: Evaluate for cholelithiasis. TECHNIQUE: Right upper quadrant sonography performed with image documentation. COMPARISON: None provided. FINDINGS: LIVER: The liver measures 14.3 cm. Normal echogenicity. No focal lesion identified. GALLBLADDER: Distended gallbladder measuring 14.7 cm with a 2 cm non-mobile stone impacted at the neck. Gallbladder wall thickening with edema (5 mm). Multiple gallstones and sludge noted. COMMON BILE DUCT (CBD): Dilated to 6 mm, which is at the upper limit of normal. Proximal ductal obstruction is suspected, possibly by the gallstones. PANCREAS: The tail is obscured by bowel gas. The visualized portion of the pancreas is unremarkable. RIGHT KIDNEY: Measures 12.4 ??? 4.5 ??? 4.3 cm. Normal renal contours. No evidence of hydronephrosis, calculi, or mass. IMPRESSION: Cholelithiasis with acute cholecystitis. Borderline dilatation of the CBD could be secondary to proximal ductal obstruction by the gallstones. /[place] DICTATED BY: DEEPALI URENA Jr., MD DATE: 12/13/24608 ELECTRONICALLY SIGNED BY: DEEPALI RUENA Jr., MD DATE: 12/13/24608 ASSESSMENT: Acute cholecystitis with biliary calculus, POA Acute abdominal pain/Epigastric pain/sternal chest pain, POA Acute complicated cystitis, POA Anemia PLAN: Acute cholecystitis with biliary calculus, POA * Patient placed on Zosyn and Toradol for pain * Abdominal ultrasound shows cholelithiasis with acute cholecystitis * Consulted surgery and waiting on their recommendation Acute complicated cystitis, POA * Patient placed on ceftriaxone IV * Patient's blood has been sent for culture, initially shows Gram-negative rods Anemia * Patient's hemoglobin at 11 * No therapy prescribed at this time but will keep an eye ATTESTATION BY PHYSICIAN I have seen and examined the patient. I reviewed the documentation, medical decision making, and treatment plan as noted by the resident provider above. I agree with the findings and plan of care. Garcia Gordillo MD, ABHINAV MD Dec 13, 2024 15:58
[2024-12-13] MEDS: PoTASSium chloRIDE 20MEQ ER 20 MEQ ERTAB PO PRN (20:16)
[2024-12-13] MEDS: LACTULOSE 20 GM/30 ML UDCUP PO PRN (22:04)
[2024-12-13] MEDS ORDERED: SIME80TA PO (23:16)
--- NOTE | 2024-12-13 23:29 | NUR ---
hypotension patient having low blood pressure of 85/50 with heart rate of 83. we checked it multiple times and manually. patient is asymptomatic. she is laying in bed with her legs elevated. I paged evangelist guillen np and she ordered 1 liter bolus of normal saline. will continue to monitor patient.
[2024-12-13] MEDS: 0.9%NACL 1000ML 1,000 ML IV SCH (23:32)
--- NOTE | 2024-12-13 23:34 | NUR ---
nurse note patient alert and oriented times 4. at bedside. plan of care discussed with them and they verbalized understanding. patient walking to the restroom with no issues. patient verbalizes no pain after the mrcp just "tiredness." her bp ranges in the 80's/40's. paged evangelist guillen and she ordered 1 liter bolus of Normal saline. patient is laying calmly in bed on her phone. her left home. call light within reach, bed alarm on, 2 side rails up. will continue to monitor patient.
[2024-12-14] VITALS (13 sets, daily range): BP systolic 84–103; BP diastolic 44–76; PULSE 68–102; RESP 16–19; TEMP 97.4–99; O2SAT 98
--- NOTE | 2024-12-14 01:06 | NUR ---
hypotension paged evangelist guillen, pharmacy technician inpatient for bp of 84/44 with heart rate 83. she ordered midodrine 10 mg tid and another 1 liter of ns bolus. she also ordered cbc, cmp, mag, type and screen stat labs to monitor for bleeding. will continue to monitor patient.
[2024-12-14 01:20] LABS: IMMATURE GRANULOCYTE ABSOLUTE 0.01 K/uL (0-1); NUCLEATED RED BLOOD CELLS 0.0 % (0.0-0.19); PLATELET COUNT (AUTO) 208 K/uL (130-400); RED BLOOD CELL COUNT(AUTO) 4.08 MIL/uL (4.00-5.50); RED CELL DISTRIBUTION WIDTH 15.2 % (11.0-15.5); WHITE BLOOD COUNT (AUTO) 6.9 K/uL (4.8-10.8)
[2024-12-14] MEDS ORDERED: 0.9%NACL 1000ML 1,000 ML IV SCH (01:30)
[2024-12-14 01:33] LABS: CREATININE 0.5 mg/dL (0.5-1.0); GLOMERULAR FILTR. RATE CALC 126.0 mL/min (>90); GLUCOSE,RANDOM 76.0 mg/dL (70-105); SODIUM SERUM 141.0 mmol/L (136-145); UREA NITROGEN, BLOOD 9.0 mg/dL (7-18)
[2024-12-14 01:37] LABS: ASPARTATE AMINOTRANSFERASE 22.0 U/L (10-37); TOTAL PROTEIN, SERUM 6.3 g/dL (6.0-8.3)
--- NOTE | 2024-12-14 02:10 | HMCIMG ---
EXAM: MRCP with and without Intravenous Contrast. CLINICAL HISTORY: Cholecystitis. TECHNIQUE: Multisequence, multiplanar magnetic resonance images of the abdomen. Intravenous contrast was administered. COMPARISON: Ultrasound abdomen right upper quadrant of the same date. FINDINGS: The gallbladder is grossly distended, measuring 12.5 cm in the maximum craniocaudal dimension. There is a 2.6 cm calculus with edematous moreno and pericholecystic fluid. No intrahepatic biliary ductal dilation is present. The cystic duct and right and left hepatic ducts are unremarkable. The common bile duct is nondilated. No common bile duct obstruction. Normal pancreatic duct. No biliary strictures are present. No choledocholithiasis. No pleural effusion. There is no focal abnormality appreciated within the liver, pancreas, spleen, adrenals, or kidneys. There is no obvious bowel wall thickening. No abdominal aortic aneurysm. No lymphadenopathy. Trace fluid in the hepatorenal pouch. There is no acute osseous abnormality. IMPRESSIONS: 1. Cholelithiasis with cholecystitis. 2. No choledocholithiasis. 3. Streak fluid in the hepatorenal pouch. No gross interval changes. /Monique
[2024-12-14] MEDS: MAGNESIUM 2GM PREMIX 50ML 50 ML IV PRN (02:24)
[2024-12-14 04:29] LABS: IMMATURE GRANULOCYTE ABSOLUTE 0.01 K/uL (0-1); NUCLEATED RED BLOOD CELLS 0.0 % (0.0-0.19); PLATELET COUNT (AUTO) 191 K/uL (130-400); RED BLOOD CELL COUNT(AUTO) 3.78 MIL/uL (4.00-5.50); RED CELL DISTRIBUTION WIDTH 15.2 % (11.0-15.5); WHITE BLOOD COUNT (AUTO) 5.8 K/uL (4.8-10.8)
[2024-12-14 04:53] LABS: ASPARTATE AMINOTRANSFERASE 22.0 U/L (10-37); CREATININE 0.3 mg/dL (0.5-1.0); GLOMERULAR FILTR. RATE CALC 143.0 mL/min (>90); GLUCOSE,RANDOM 75.0 mg/dL (70-105); PHOSPHORUS 2.8 mg/dL (2.5-4.9); SODIUM SERUM 139.0 mmol/L (136-145); TOTAL PROTEIN, SERUM 5.9 g/dL (6.0-8.3); UREA NITROGEN, BLOOD 8.0 mg/dL (7-18)
--- NOTE | 2024-12-14 08:36 | NUR ---
[facility] CALLED [facility] FOR TIME FOR [facility], PER [facility] UNABLE TO GET PT IN THIS MORNING UNTIL LATER IN AFTERNOON. OK TO GIVE ONLY MIDODRINE PO
--- NOTE | 2024-12-14 08:41 | NUR ---
ROUNDS MOLINA AT BEDSIDE. MD AWARE OF BP 85/50. HR 84
[2024-12-14] MEDS: LACTATED RINGERS 1000ML 1,000 ML IV SCH (08:45)
[2024-12-14] MEDS ORDERED: MAGNESIUM 2GM PREMIX 50ML 50 ML IV SCH (10:00)
--- NOTE | 2024-12-14 10:49 | NUR ---
DCP: HOME Pt currently lives with lauren Black [phone] and 3 kids. Pt does not report any insecurities with food, intermediate, and/or utilities. Pt does not have any DME, home health, or provider services. Pt is able to complete ADLs independently. Pt does not have a PCP however states that she has already started looking into who is covered by her insurance and did not feel that there was a need for community resources. Pt uses [facility] on [address] for any RX needs. At [place] pt will want to go home and family can assist with transportation. Addendum: 12/14/24 at 1051 by YOSELIN ANAYA SS Amended: Links added.
--- NOTE | 2024-12-14 11:46 | NUR ---
HIDA PT TAKEN FOR HIDA SCAN
[2024-12-14] MEDS: 0.9%NACL 1000ML 1,000 ML IV ONE (12:03)
--- NOTE | 2024-12-14 13:20 | NUR ---
HIDA SCAN PT RETURN FROM HIDA SCAN PER [facility] DO NOT FEED YET. STILL PENDING SECOND SCAN
[2024-12-14] MEDS: LACTATED RINGERS 1000ML 1,000 ML IV ONE (14:02)
--- NOTE | 2024-12-14 15:18 | PN ---
[facility] PROGRESS NOTE Date of Service: Dec 14, 2024 Time of Service: 15:18 SUBJECTIVE: 12/13/24: Patient has been moved from the emergency department to room 306. Patient examined in the room with family present. Patient appeared comfortable, in no distress. Patient reports the pain has improved after the medications but still feels a little sore. She does not have any nausea. Waiting on the surgeon Dr. Smith for further treatment recommendations. She is currently on Zosyn IV, Toradol for pain. 12/14/24: Patient was examined today in her room with family present, she was lying comfortably without any pain or distress. Her vitals were within range except for her blood pressure which was around 85/50 so we started her on a bolus of sodium chloride and 10 mg midodrine. Her lab work showed her WBC at 5.8 her hemoglobin decreased from 11-9.1, her magnesium was also low at 1.7 So we started her on magnesium protocol and gave her magnesium supplementation. Her a procalcitonin and lactic acid the normal at 0.8 and less than 0.05 respectively. C-reactive protein was high at 21.30. Her urinary culture came back positive for Klebsiella pneumoniae sensitive to everything except nitrofurantoin. An MRCP was performed which showed cholelithiasis with cholecystitis and no choledocholithiasis. She also underwent a HIDA scan and we are awaiting results. Per surgery the waiting on the results to decide further recommendations. REVIEW OF SYSTEMS CONSTITUTIONAL: Denies fever, chills, or night sweats. No unintentional weight loss reported. NEUROLOGICAL: Denies headache, amaurosis fugax, motor weakness, sensory deficit, vertigo/spinning sensation, gait abnormalities, or tremors. ENT: No hearing loss, otalgia, otorrhea, rhinitis, rhinorrhea, hoarseness, or sore throat. CARDIOVASCULAR: Denies any exertional angina, dyspnea on exertion, orthopnea, paroxysmal nocturnal dyspnea PULMONARY: shortness of breath, Denies any cough, phlegm/sputum, hemoptysis, pleuritic chest pain. GASTROINTESTINAL: Denies any type of dysphagia to either liquids or solids. Denies nausea, vomiting, pyrosis, early satiety, abdominal pain, diarrhea, constipation, or changes in stool consistency or caliber. GENITOURINARY: Denies frequency, urgency, nocturia, hematuria or incontinence DERMATOLOGIC: Denies rashes or pruritus. PHYSICAL EXAM GENERAL APPEARANCE: The patient is awake, alert, and oriented, in no acute cardiopulmonary distress. NEUROLOGICAL: Motor is 5/5 in bilateral upper and lower extremities proximal to distal. No sensory deficits. HEENT: Face is symmetric. Pupils are equal and reactive. Extraocular movements are intact. NECK: Supple. No JVD. No lymphadenopathy. CHEST: Normal chest expansion. No Telemetry. LUNGS: Absence of any rales, rhonchi or any wheezing. CARDIOVASCULAR: Regular. S1 and S2 normal. No appreciable rubs, murmurs or gallops. ABDOMEN: Abdominal tenderness, Soft, and nondistended. There is no rebound, voluntary guarding, or rigidity. : Deferred. No Wright. EXTREMITIES: Non-edematous and not cyanotic. No clubbing. Good capillary refill. SKIN: No skin breakdown. Vital Signs (last 8hr) Date Time Temp Pulse Resp B/P (MAP) Pulse Ox O2 Delivery O2 Flow Rate FiO2 12/14/24 12:03 98.6 75 19 98/56 97 Room Air 12/14/24 08:00 98.2 84 19 85/50 98 Room Air LABS: Laboratory: Test 12/14/24 13:37 12/14/24 04:17 12/13/24 01:36 12/13/24 01:30 Range/Units Lactic Acid Level 0.8 0.8-2.5 mmol/L C-Reactive Protein, Quantitative 21.30 H 0.5-3.0 mg/L Procalcitonin < 0.05 L 0.05-0.5 ng/mL White Blood Count 5.8 4.8-10.8 K/uL Red Blood Count 3.78 L 4.00-5.50 MIL/uL Hemoglobin 9.1 L 12.0-16.0 g/dL Hematocrit 29.6 L 36-48 % Mean Corpuscular Volume 78.3 L 79-99 fL Mean Corpuscular Hemoglobin 24.1 L 27.0-33.0 pg Mean Corpuscular Hemoglobin Concent 30.7 L 32.0-36.0 g/dL Red Cell Distribution Width 15.2 11.0-15.5 % Platelet Count 191 130-400 K/uL Mean Platelet Volume 11.3 H 7.5-10.5 fL Immature Granulocyte % (Auto) 0.2 0-1 % Neutrophils (%) (Auto) 54.3 40.0-77.0 % Lymphocytes (%) (Auto) 35.8 21.0-51.0 % Monocytes (%) (Auto) 7.8 3.0-13.0 % Eosinophils (%) (Auto) 1.4 0.0-8.0 % Basophils (%) (Auto) 0.5 0.0-5.0 % Neutrophils # (Auto) 3.1 1.8-7.7 K/uL Lymphocytes # (Auto) 2.1 1.0-4.8 K/uL Monocytes # (Auto) 0.5 0.1-1.0 K/uL Eosinophils # (Auto) 0.08 0.00-0.70 K/uL Basophils # (Auto) 0.03 0.00-0.20 K/uL Absolute Immature Granulocyte (auto 0.01 0-1 K/uL Nucleated Red Blood Cells 0.0 0.0-0.19 % Sodium Level 139 136-145 mmol/L Potassium Level 4.4 3.5-5.1 mmol/L Chloride Level 108 101-111 mmol/L Carbon Dioxide Level 25 21-32 mmol/L Blood Urea Nitrogen 8 7-18 mg/dL Creatinine 0.3 L 0.5-1.0 mg/dL Glomerular Filtration Rate Calc 143 >90 mL/min Random Glucose 75 70-105 mg/dL Total Calcium 7.6 L 8.5-10.1 mg/dL Phosphorus Level 2.8 2.5-4.9 mg/dL Magnesium Level 1.70 L 1.80-2.40 mg/dL Total Bilirubin 0.7 0.2-1.0 mg/dL Aspartate Amino Transf (AST/SGOT) 22 10-37 U/L Alanine Aminotransferase (ALT/SGPT) 27 # 12-78 U/L Alkaline Phosphatase 100 50-136 U/L Total Protein 5.9 L 6.0-8.3 g/dL Albumin 2.8 L 3.5-5.0 g/dL Amylase Level 31 25-115 U/L Lipase 29 16-77 U/L Red Blood Cell Morphology See comments Total Creatine Kinase 43 # 21-232 U/L Troponin I High Sensitivity < 4 L 4-50 ng/L Urine Color YELLOW YELLOW Urine Appearance CLOUDY H CLEAR Urine pH 6.0 5.0-8.0 Urine Specific Bolton 1.027 1.001-1.031 Urine Protein 20 H NEGATIVE mg/dL Urine Glucose (UA) NEGATIVE NEGATIVE mg/dL Urine Ketones 150 H NEGATIVE mg/dL Urine Occult Blood NEGATIVE NEGATIVE Urine Nitrate 2+ H NEGATIVE Urine Bilirubin NEGATIVE NEGATIVE mg/dL Urine Urobilinogen 4.0 H 0.2-1.0 mg/dL Urine Leukocyte Esterase 25 H NEGATIVE Alex/uL Urine RBC 2-5 H 0-1 /HPF Urine WBC 11-25 H 0-1 /HPF Urine Squamous Epithelial Cells FEW 0-2 /HPF Urine Bacteria MOD None Seen /HPF Urine HCG, Qualitative NEGATIVE NEGATIVE Urine Opiates Screen NEGATIVE NEGATIVE Urine Barbiturates Screen NEGATIVE NEGATIVE Urine Phencyclidine Screen NEGATIVE NEGATIVE Urine Amphetamines Screen NEGATIVE NEGATIVE Urine Benzodiazepines Screen NEGATIVE NEGATIVE Urine Cocaine Screen NEGATIVE NEGATIVE Urine Marijuana (THC) Screen NEGATIVE NEGATIVE Current Medications Medications (Trade) Dose Ordered Sig/Connie Route PRN Reason Start Time Stop Time Status Last Admin Dose Admin Acetaminophen (TYLenol 325MG TAB) 650 mg Q6H PRN PO FEVER/MILD PAIN LEVEL 1-3 12/13/24 05:30 01/12/25 05:29 Acetaminophen (TYLenol 650MG SUPPOSITORY) 650 mg Q6H PRN RC FEVER / MILD PAIN 1-3 IF NPO 12/13/24 05:30 01/12/25 05:29 Ceftriaxone Sodium (Rocephin 2gm Inj) 2 gm Q24H IVPB 12/14/24 03:00 12/13/24 05:59 DC Dextrose (D50w) 50 ml AD PRN IV HYPOGLYCEMIA PROTOCOL 12/13/24 06:00 01/12/25 05:59 Docusate Sodium (COLace 100MG CAP) 100 mg BID PRN PO c 12/13/24 05:30 01/12/25 05:29 Glucagon (Glucagon 1mg Kit) 1 mg AD PRN IM HYPOGLYCEMIA PROTOCOL 12/13/24 06:00 01/12/25 05:59 Ketorolac Tromethamine (toRADol) 30 mg Q6H PRN IM SEVERE PAIN (7-10) 12/13/24 05:30 12/18/24 05:29 12/13/24 08:20 30 MG Labetalol HCl (TRANdate 20MG SYG) 10 mg Q2H PRN IV SBP GREATER THAN 160 12/13/24 05:30 01/12/25 05:29 Lactated Ringer's 1,000 ml @ 75 mls/hr [id number] IV 12/13/24 05:30 12/14/24 08:42 DC 12/13/24 22:04 75 MLS/HR Lactated Ringer's 1,000 ml @ 125 mls/hr Q8H IV 12/14/24 09:00 01/13/25 08:59 12/14/24 08:45 125 MLS/HR Lactulose (Constulose 20gm/ 30ml Udcup) 20 gm Q6H PRN PO CONSTIPATION 12/13/24 05:30 01/12/25 05:29 12/13/24 22:04 20 GM Magnesium Sulfate 50 ml @ 0 mls/hr PROTOCOL IV 12/14/24 10:00 01/13/25 09:59 Magnesium Sulfate 50 ml @ 0 mls/hr PROTOCOL PRN IV MAGNESIUM PROTOCOL 12/13/24 06:00 12/14/24 09:48 DC 12/14/24 02:24 15 MLS/HR Midodrine (PROAMatine 5 MG TABLET) 10 mg TID PO 12/14/24 09:00 01/13/25 08:59 12/14/24 08:43 10 MG Morphine Sulfate (morPHINE 4MG SYG) 4 mg Q4H PRN IVP SEVERE PAIN (7-10) 12/13/24 05:30 12/20/24 05:29 12/13/24 18:26 4 MG Ondansetron HCl (zoFRAN 4MG INJ) 4 mg Q6H PRN IVP NAUSEA/VOMITING 12/13/24 05:30 01/12/25 05:29 Piperacillin Sod/ Tazobactam Sod (Zosyn 3.375gm+NS 50ml) 3.375 gm Q8H IVPB 12/13/24 13:00 12/23/24 12:59 12/14/24 14:02 3.375 GM Potassium Chloride 100 ml @ 100 mls/hr AD PRN IV POTASSIUM PROTOCOL 12/13/24 06:00 01/12/25 05:59 Potassium Chloride (K-Dur/Klor-Con 20meq) 20 meq AD PRN PO POTASSIUM PROTOCOL 12/13/24 06:00 01/12/25 05:59 12/13/24 22:05 20 MEQ Potassium Chloride (KCl 10% Elixir 20meq/15ml) 20 meq AD PRN PO POTASSIUM PROTOCOL 12/13/24 06:00 01/12/25 05:59 Sodium Chloride 1,000 ml @ 0 mls/hr Q0M IV 12/13/24 23:30 12/14/24 06:50 DC 12/14/24 01:10 1,000 MLS/HR Sodium Chloride 1,000 ml @ 0 mls/hr Q0M IV 12/14/24 01:30 12/14/24 06:50 DC Sodium Chloride (NS 50ml) 50 ml AD IV 12/13/24 13:00 12/13/24 05:58 DC Temazepam (restORIL 15 MG CAP) 15 mg HS PRN PO INSOMNIA/SLEEP 12/13/24 05:30 01/12/25 05:29 DIAGNOSTICS / RADIOLOGY: [place] [address] IMAGING REPORT Signed PATIENT: SOL GARCIA MR#: [id number] : 1990 SEX: F AGE: 34 LOCATION: 3BH ORDER [id number] STATUS: ADM IN REPORT#: [id number] SERVICE [id number] REASON: CHOLECYSTITIS ORDERING PHYSICIAN: AMBER COLEY MD PROCEDURE: MRCP WWO - MRCP(ABDWWO)CHOLANGIOPANCREATO EXAM: MRCP with and without Intravenous Contrast. CLINICAL HISTORY: Cholecystitis. TECHNIQUE: Multisequence, multiplanar magnetic resonance images of the abdomen. Intravenous contrast was administered. COMPARISON: Ultrasound abdomen right upper quadrant of the same date. FINDINGS: The gallbladder is grossly distended, measuring 12.5 cm in the maximum craniocaudal dimension. There is a 2.6 cm calculus with edematous moreno and pericholecystic fluid. No intrahepatic biliary ductal dilation is present. The cystic duct and right and left hepatic ducts are unremarkable. The common bile duct is nondilated. No common bile duct obstruction. Normal pancreatic duct. No biliary strictures are present. No choledocholithiasis. No pleural effusion. There is no focal abnormality appreciated within the liver, pancreas, spleen, adrenals, or kidneys. There is no obvious bowel wall thickening. No abdominal aortic aneurysm. No lymphadenopathy. Trace fluid in the hepatorenal pouch. There is no acute osseous abnormality. IMPRESSIONS: 1. Cholelithiasis with cholecystitis. 2. No choledocholithiasis. 3. Streak fluid in the hepatorenal pouch. No gross interval changes. /Finger DICTATED BY: DEEPALI URENA Jr., MD DATE: 12/14/24309 ELECTRONICALLY SIGNED BY: DEEPALI URENA Jr., MD DATE: 12/14/24309 ASSESSMENT: Acute cholecystitis with biliary calculus, POA Hypotension, cause unknown Acute abdominal pain/Epigastric pain/sternal chest pain, POA Acute complicated cystitis, POA Anemia PLAN: Acute cholecystitis with biliary calculus, POA * Continue patient on Zosyn and Toradol for pain * MRCP performed which showed cholelithiasis with cholecystitis and no choledocholithiasis * Surgery waiting on HIDA scan for further recommendations Acute complicated cystitis, POA * Continue patient on ceftriaxone IV * Patient's urine culture positive for Klebsiella pneumoniae sensitive to everything except nitrofurantoin Anemia * Patient's hemoglobin today at 9.1 * No therapy prescribed at this time but will keep an eye Hypotension, cause unknown * Patient's blood pressure has been running low with her systolic ranging between 84-98 and diastolic between 50 to 59 * Gave her saline bolus and gave her midodrine * Going to have her perform orthostatic vital signs and cortisol level for tomorrow morning ATTESTATION BY PHYSICIAN I have seen and examined the patient. I reviewed the documentation, medical decision making, and treatment plan as noted by the resident provider above. I agree with the findings and plan of care. CLARA FITZPATRICK MD, ABHINAV MD Dec 14, 2024 15:18
[2024-12-14 20:02] LABS: INR 1.08 (0.85-1.15)
--- NOTE | 2024-12-14 20:18 | HMCIMG ---
Examination Hepatobiliary study History CHOLECYSTITIS (Hx) / CHOLECYSTITIS, Static Images (DICOM Hx) (DICOM Hx) Technique Tc-99m mebrofenin were administered intravenously followed by acquisition of planar images of the abdomen. Findings Following administration of radiotracer, there is prompt appearance of normal hepatic contours, followed by appearance of activity in unremarkable appearing bile ducts. There is nonvisualization of the gallbladder at the conclusion of the examination reflecting acute cholecystitis. IMPRESSION: 1. Nonvisualization of the gallbladder consistent with acute cholecystitis. /[place]
[2024-12-15] VITALS (30 sets, daily range): BP systolic 92–130; BP diastolic 51–96; PULSE 71–100; RESP 14–19; TEMP 96.7–98.4; O2SAT 98–100
--- NOTE | 2024-12-15 04:00 | NUR ---
ORTHOSTATIC VS LAYING 99/51, HR 77 SITTING 96/63, HR 87 STANDING 92/61, HR 100
[2024-12-15 05:47] LABS: NUCLEATED RED BLOOD CELLS 0.0 % (0.0-0.19); PLATELET COUNT (AUTO) 189.0 K/uL (130-400); RED BLOOD CELL COUNT(AUTO) 3.89 MIL/uL (4.00-5.50); RED CELL DISTRIBUTION WIDTH 15.3 % (11.0-15.5); WHITE BLOOD COUNT (AUTO) 5.6 K/uL (4.8-10.8)
[2024-12-15 05:53] LABS: ASPARTATE AMINOTRANSFERASE 22.0 U/L (10-37); CREATININE 0.5 mg/dL (0.5-1.0); GLOMERULAR FILTR. RATE CALC 126.0 mL/min (>90); GLUCOSE,RANDOM 79.0 mg/dL (70-105); SODIUM SERUM 138.0 mmol/L (136-145); TOTAL PROTEIN, SERUM 6.2 g/dL (6.0-8.3); UREA NITROGEN, BLOOD 3.0 mg/dL (7-18)
[2024-12-15] MEDS ORDERED: LIDOCAINE 2%-EPI 1:200,000 20 ML VIAL IJ ONE (09:49)
--- NOTE | 2024-12-15 10:00 | NUR ---
PT TAKEN DOWN FOR SURGERY
--- NOTE | 2024-12-15 10:13 | CONS ---
GENERAL SURGERY CONSULTATION NOTE DATE OF CONSULTATION: Dec 15, 2024 TIME OF CONSULTATION: 10:09 CONSULTING SERVICE: Amber Diallo MD REQUESTING PHYSICAIN: [ ] REASON FOR CONSULTATION: [ ] Abdominal pain HISTORY OF PRESENT ILLNESS: [ ] 34-year-old lady who presented with abdominal pain Pain started about five days ago Associated with nausea and vomiting No diarrhea or constipation No fever PAST MEDICAL HISTORY: [None PAST SURGICAL HISTORY: [ ] x3 FAMILY HISTORY: [ ] No family history of hypertension or diabetes SOCIAL HISTORY: [ ] No smoking No alcohol Current Medications Medications (Trade) Dose Ordered Sig/Connie Route Start Time Stop Time Status Last Admin Dose Admin Ceftriaxone Sodium (Rocephin 2gm Inj) 2 gm Q24H IVPB 12/14/24 03:00 12/13/24 05:59 DC Lactated Ringer's 1,000 ml @ 75 mls/hr [id number] IV 12/13/24 05:30 12/14/24 08:42 DC 12/13/24 22:04 75 MLS/HR Lactated Ringer's 1,000 ml @ 125 mls/hr Q8H IV 12/14/24 09:00 01/13/25 08:59 12/15/24 09:13 125 MLS/HR Magnesium Sulfate 50 ml @ 0 mls/hr PROTOCOL IV 12/14/24 10:00 01/13/25 09:59 Midodrine (PROAMatine 5 MG TABLET) 10 mg TID PO 12/14/24 09:00 01/13/25 08:59 12/14/24 20:25 10 MG Piperacillin Sod/ Tazobactam Sod (Zosyn 3.375gm+NS 50ml) 3.375 gm Q8H IVPB 12/13/24 13:00 12/23/24 12:59 12/15/24 04:33 3.375 GM Sodium Chloride 1,000 ml @ 0 mls/hr Q0M IV 12/13/24 23:30 12/14/24 06:50 DC 12/14/24 01:10 1,000 MLS/HR Sodium Chloride 1,000 ml @ 0 mls/hr Q0M IV 12/14/24 01:30 12/14/24 06:50 DC Sodium Chloride (NS 50ml) 50 ml AD IV 12/13/24 13:00 12/13/24 05:58 DC Allergies: Coded Allergies: naproxen (Verified Allergy, 12/04/12) REVIEW OF SYSTEMS: TELEMARKETING AGENT: [Denies headaches or blurring of vision.] RESP: [No cough, chest pain or SOB.] CVS: [No palpitaions.] GI: [abdominal pain with nausea and vomiting, no diarrhea or constipation.] EILEEN: [No dysuria or hematuria.] Musculoskeletal: [No swelling or joint pain.] BACK: [No pain or swelling.] All other systems are reviewed and essentially negative pertinent positives in HPI. PHYSICAL EXAMINATION: GENERAL: [Patient is lying comfortably in bed, not in any obvious distress.] HEAD: [Normal with no signs of head trauma.] EYES: [Not pale not jaundiced afebrile to touch.] ENT: [ Normal.] NECK: [Supple,no tenderness,no lymphadenopathy,no masses,no thyromegaly ,no bruits, no JVD.] LUNGS: [Clear breath sounds bilaterally. No wheezes, rales, or rhonchi.] HEART: [Regular rate and rhythm. Normal S1 and S2, without murmurs, rub or gallop.] VASC: [No edema. Peripheral pulses normal and equal in all extremities.] ABD: [Bowel sounds present,soft, RUQ tender, no masses, no organomegaly.] : [Normal, no suprapubic tenderness.] LYMPH: [No lymphadenopathy noted.] EXT: [ Warm soft, non tender.] SKIN: [ No rashes or lesions.] NEURO: [ Awake Alert and oriented x3.] Vital Signs (last 8hr) Date Time Temp Pulse Resp B/P (MAP) Pulse Ox O2 Delivery O2 Flow Rate FiO2 12/15/24 08:15 98.2 76 19 96/68 98 Room Air 12/15/24 03:48 87 96/63 12/15/24 03:48 100 92/61 12/15/24 03:47 98.1 77 17 99/51 99 Room Air LABORATORY: [ ] Hematology Labs: Test 12/15/24 05:24 12/14/24 04:17 Range/Units White Blood Count 5.6 4.8-10.8 K/uL Red Blood Count 3.89 L 4.00-5.50 MIL/uL Hemoglobin 9.5 L 12.0-16.0 g/dL Hematocrit 30.2 L 36-48 % Mean Corpuscular Volume 77.6 L 79-99 fL Mean Corpuscular Hemoglobin 24.4 L 27.0-33.0 pg Mean Corpuscular Hemoglobin Concent 31.5 L 32.0-36.0 g/dL Red Cell Distribution Width 15.3 11.0-15.5 % Platelet Count 189 130-400 K/uL Mean Platelet Volume 11.5 H 7.5-10.5 fL Nucleated Red Blood Cells 0.0 0.0-0.19 % Immature Granulocyte % (Auto) 0.2 0-1 % Neutrophils (%) (Auto) 54.3 40.0-77.0 % Lymphocytes (%) (Auto) 35.8 21.0-51.0 % Monocytes (%) (Auto) 7.8 3.0-13.0 % Eosinophils (%) (Auto) 1.4 0.0-8.0 % Basophils (%) (Auto) 0.5 0.0-5.0 % Neutrophils # (Auto) 3.1 1.8-7.7 K/uL Lymphocytes # (Auto) 2.1 1.0-4.8 K/uL Monocytes # (Auto) 0.5 0.1-1.0 K/uL Eosinophils # (Auto) 0.08 0.00-0.70 K/uL Basophils # (Auto) 0.03 0.00-0.20 K/uL Absolute Immature Granulocyte (auto 0.01 0-1 K/uL Chemistry Labs: Test 12/15/24 05:24 12/14/24 13:37 12/14/24 04:17 Range/Units Sodium Level 138 136-145 mmol/L Potassium Level 4.1 3.5-5.1 mmol/L Chloride Level 106 101-111 mmol/L Carbon Dioxide Level 25 21-32 mmol/L Blood Urea Nitrogen 3 L 7-18 mg/dL Creatinine 0.5 0.5-1.0 mg/dL Glomerular Filtration Rate Calc 126 >90 mL/min Random Glucose 79 70-105 mg/dL Total Calcium 8.4 L 8.5-10.1 mg/dL Total Bilirubin 0.7 0.2-1.0 mg/dL Aspartate Amino Transf (AST/SGOT) 22 10-37 U/L Alanine Aminotransferase (ALT/SGPT) 27 12-78 U/L Alkaline Phosphatase 135 50-136 U/L Total Protein 6.2 6.0-8.3 g/dL Albumin 2.9 L 3.5-5.0 g/dL Lactic Acid Level 0.8 0.8-2.5 mmol/L C-Reactive Protein, Quantitative 21.30 H 0.5-3.0 mg/L Procalcitonin < 0.05 L 0.05-0.5 ng/mL Phosphorus Level 2.8 2.5-4.9 mg/dL Magnesium Level 1.70 L 1.80-2.40 mg/dL Amylase Level 31 25-115 U/L Lipase 29 16-77 U/L Coagulation Labs: Test 12/14/24 18:57 Range/Units Prothrombin Time 11.4 9.6-11.6 SEC Prothromb Time International Ratio 1.08 0.85-1.15 Activated Partial Thromboplast Time 29.3 26.3-35.5 SEC DIAGNOSTICS / RADIOLOGY: [Copy/Paste Echos/Imaging Report here] ASSESSMENT: [] Acute cholecystitis Cholelithiasis PLAN: [] NPO/IVF/IV ANTIOBIOTICS Schedule for OR We talked about various treatment options including but not limited to surgery. We talked about risks and benefits of surgery, patient verbalized understanding has agreed to proceed [ ]. We will schedule robotic/laparoscopic cholecystectomy possible open [ ]. AMBER DIALLO MD Dec 15, 2024 10:13
--- NOTE | 2024-12-15 11:33 | OP ---
DATE OF SERVICE:12/15/24 PREOPERATIVE DIAGNOSES: Acute Cholecystitis Cholelithiasis POSTOPERATIVE DIAGNOSES: Acute Cholecystitis Cholelithiasis PROCEDURE PERFORMED: Laparoscopic cholecystectomy. SURGEON: Amber Lee MD ANESTHESIA: General. ESTIMATED BLOOD LOSS: Minimal. FINDINGS: 1.Severe right upper quadrant inflammatory adhesions. 2. Enlarged tense gallbladder. 3. Cholelithiasis. SPECIMEN REMOVED: Gallbladder. COMPLICATIONS: None. DESCRIPTION OF PROCEDURE: The patient was brought into the operating room. After proper identification, the patient was placed on operating table in the supine position. General anesthesia was administered and the patient was endotracheally intubated. Attention was then focus in the area of the abdomen. The same was prepped and draped in the usual sterile fashion. An appropriate timeout was then carried out at this point. Then I proceeded by making a supraumbilical incision. The incision was carried through the skin and subcutaneous tissue until the fascia was identified. The fascia was then carefully incised. Stay stitches were placed on either side of the fascia and the abdominal cavity was entered. The Bucky port was then introduced. CO2 was insufflated into the abdomen and the laparoscope was introduced. Inspection of the abdomen showed evidence of severe right upper quadrant inflammatory adhesions and enlarged gallbladder. Three additional ports were then placed, one in the epigastric region 2 in the right upper quadrant. The patient was then placed in reverse Trendelenburg position rotated to the left. A grasper was then used to grasp the fundus of the gallbladder and the same was retracted cephalad and the inflammatory adhesions in the right upper quadrant was then carefully taken down using the Bovie cautery. At the infundibulum same was retracted lateral and the peritoneal covering the triangle of Calot was then carefully opened. The cystic duct and the cystic artery were then identified. Each of these structures were then carefully skeletonized for a distance of about 2 cm. Proximal distal clippings were then applied in each of these structures were then transected between clips. The gallbladder was then removed from the gallbladder fossa using the Bovie cautery, care taken not to injure the liver. The gallbladder was then extracted from the abdomen using an Endopouch. Copious amounts of irrigation was carried out at this point. Hemostasis was noted to be adequate. So, at this point, I proceeded by closing the wound. P orts were withdrawn under vision. CO2 was let out of the abdomen. Supraumbilical fascia was approximated together using 0 Vicryl [id number] stitches and the skin was approximated together using 4-0 Monocryl subcuticular closure. Steri-Strips and sterile dressings were then applied. Instrument and sponge count was taken found to be correct 2. The patient was then woken up, extubated and taken to the recovery room in stable condition. The patient tolerated the procedure well. AMBER COLEY MD Dec 15, 2024 11:33
--- NOTE | 2024-12-15 12:45 | NUR ---
PT RETURN FROM SURGERY AOX4 PT DENIES ANY PAIN AT THE MOMENT.
[2024-12-15] MEDS: ZOSYN 3.375GM +NS 50ML IVPB SCH (14:53)
--- NOTE | 2024-12-15 17:30 | PN ---
[facility] PROGRESS NOTE Date of Service: Dec 15, 2024 Time of Service: 16:47 SUBJECTIVE: 12/13/24: Patient has been moved from the emergency department to room 306. Patient examined in the room with family present. Patient appeared comfortable, in no distress. Patient reports the pain has improved after the medications but still feels a little sore. She does not have any nausea. Waiting on the surgeon Dr. Smith for further treatment recommendations. She is currently on Zosyn IV, Toradol for pain. 12/14/24: Patient was examined today in her room with family present, she was lying comfortably without any pain or distress. Her vitals were within range except for her blood pressure which was around 85/50 so we started her on a bolus of sodium chloride and 10 mg midodrine. Her lab work showed her WBC at 5.8 her hemoglobin decreased from 11-9.1, her magnesium was also low at 1.7 So we started her on magnesium protocol and gave her magnesium supplementation. Her a procalcitonin and lactic acid the normal at 0.8 and less than 0.05 respectively. C-reactive protein was high at 21.30. Her urinary culture came back positive for Klebsiella pneumoniae sensitive to everything except nitrofurantoin. An MRCP was performed which showed cholelithiasis with cholecystitis and no choledocholithiasis. She also underwent a HIDA scan and we are awaiting results. Per surgery the waiting on the results to decide further recommendations. 12/15/24: Patient was examined today in her room with family present she was lying comfortably with mild pain and no distress. Her HIDA scan showed non visualization of the gallbladder consistent with acute cholecystitis so she underwent a laparoscopic cholecystectomy today in the morning. The postop diagnosis was mentioned as cholelithiasis with cholecystitis. The surgeon started the patient on clear liquid and advanced as tolerated, that IV Dilaudid 1 mg q4h prn, PO Percocet 5/325 1 tab q4H prn. He also said the patient is okay to discharge home in a.m. if she remains stable. REVIEW OF SYSTEMS CONSTITUTIONAL: Denies fever, chills, or night sweats. No unintentional weight loss reported. NEUROLOGICAL: Denies headache, amaurosis fugax, motor weakness, sensory deficit, vertigo/spinning sensation, gait abnormalities, or tremors. ENT: No hearing loss, otalgia, otorrhea, rhinitis, rhinorrhea, hoarseness, or sore throat. CARDIOVASCULAR: Denies any exertional angina, dyspnea on exertion, orthopnea, paroxysmal nocturnal dyspnea PULMONARY: shortness of breath, Denies any cough, phlegm/sputum, hemoptysis, pleuritic chest pain. GASTROINTESTINAL: has RUQ pain, Denies any type of dysphagia to either liquids or solids. Denies nausea, vomiting, diarrhea, constipation, or changes in stool consistency or caliber. GENITOURINARY: Denies frequency, urgency, nocturia, hematuria or incontinence DERMATOLOGIC: Denies rashes or pruritus. PHYSICAL EXAM GENERAL APPEARANCE: The patient is awake, alert, and oriented, in no acute cardiopulmonary distress. NEUROLOGICAL: Motor is 5/5 in bilateral upper and lower extremities proximal to distal. No sensory deficits. HEENT: Face is symmetric. Pupils are equal and reactive. Extraocular movements are intact. NECK: Supple. No JVD. No lymphadenopathy. CHEST: Normal chest expansion. No Telemetry. LUNGS: Absence of any rales, rhonchi or any wheezing. CARDIOVASCULAR: Regular. S1 and S2 normal. No appreciable rubs, murmurs or gallops. ABDOMEN: Abdominal tenderness, Soft, and nondistended. There is no rebound, voluntary guarding, or rigidity. : Deferred. No Wright. EXTREMITIES: Non-edematous and not cyanotic. No clubbing. Good capillary refill. SKIN: No skin breakdown. Vital Signs (last 8hr) Date Time Temp Pulse Resp B/P (MAP) Pulse Ox O2 Delivery O2 Flow Rate FiO2 12/15/24 14:15 77 18 130/79 100 Room Air 12/15/24 13:45 77 18 117/81 100 Room Air 12/15/24 13:30 77 18 109/78 100 Room Air 12/15/24 13:15 77 18 125/83 100 Room Air 12/15/24 13:00 77 18 115/75 100 Room Air 12/15/24 12:40 97.3 75 18 124/79 100 Room Air 12/15/24 12:33 80 17 120/76 100 Room Air 12/15/24 12:28 97.0 76 18 123/74 100 Room Air 0.0 12/15/24 12:23 73 14 127/76 100 Room Air 12/15/24 12:23 78 15 126/71 100 Room Air 12/15/24 12:18 77 18 117/70 100 Room Air 0.0 12/15/24 12:13 79 17 123/79 100 Room Air 12/15/24 12:08 71 19 124/80 100 Room Air 12/15/24 12:03 74 16 122/71 100 Room Air 0.0 12/15/24 11:58 87 14 128/74 100 Nasal Cannula 2.0 12/15/24 11:53 84 19 129/76 100 Nasal Cannula 2.0 12/15/24 11:48 78 16 126/73 100 Nasal Cannula 2.0 12/15/24 11:43 80 16 127/68 100 Nonrebreathing Mask 10.0 12/15/24 11:38 89 18 130/80 100 Nonrebreathing Mask 10.0 12/15/24 11:33 96.6 77 17 128/72 100 Nonrebreathing Mask 10.0 LABS: Laboratory: Test 12/15/24 05:24 12/14/24 18:57 12/14/24 13:37 12/14/24 04:17 Range/Units White Blood Count 5.6 4.8-10.8 K/uL Red Blood Count 3.89 L 4.00-5.50 MIL/uL Hemoglobin 9.5 L 12.0-16.0 g/dL Hematocrit 30.2 L 36-48 % Mean Corpuscular Volume 77.6 L 79-99 fL Mean Corpuscular Hemoglobin 24.4 L 27.0-33.0 pg Mean Corpuscular Hemoglobin Concent 31.5 L 32.0-36.0 g/dL Red Cell Distribution Width 15.3 11.0-15.5 % Platelet Count 189 130-400 K/uL Mean Platelet Volume 11.5 H 7.5-10.5 fL Nucleated Red Blood Cells 0.0 0.0-0.19 % Sodium Level 138 136-145 mmol/L Potassium Level 4.1 3.5-5.1 mmol/L Chloride Level 106 101-111 mmol/L Carbon Dioxide Level 25 21-32 mmol/L Blood Urea Nitrogen 3 L 7-18 mg/dL Creatinine 0.5 0.5-1.0 mg/dL Glomerular Filtration Rate Calc 126 >90 mL/min Random Glucose 79 70-105 mg/dL Total Calcium 8.4 L 8.5-10.1 mg/dL Total Bilirubin 0.7 0.2-1.0 mg/dL Aspartate Amino Transf (AST/SGOT) 22 10-37 U/L Alanine Aminotransferase (ALT/SGPT) 27 12-78 U/L Alkaline Phosphatase 135 50-136 U/L Total Protein 6.2 6.0-8.3 g/dL Albumin 2.9 L 3.5-5.0 g/dL Prothrombin Time 11.4 9.6-11.6 SEC Prothromb Time International Ratio 1.08 0.85-1.15 Activated Partial Thromboplast Time 29.3 26.3-35.5 SEC Lactic Acid Level 0.8 0.8-2.5 mmol/L C-Reactive Protein, Quantitative 21.30 H 0.5-3.0 mg/L Procalcitonin < 0.05 L 0.05-0.5 ng/mL Immature Granulocyte % (Auto) 0.2 0-1 % Neutrophils (%) (Auto) 54.3 40.0-77.0 % Lymphocytes (%) (Auto) 35.8 21.0-51.0 % Monocytes (%) (Auto) 7.8 3.0-13.0 % Eosinophils (%) (Auto) 1.4 0.0-8.0 % Basophils (%) (Auto) 0.5 0.0-5.0 % Neutrophils # (Auto) 3.1 1.8-7.7 K/uL Lymphocytes # (Auto) 2.1 1.0-4.8 K/uL Monocytes # (Auto) 0.5 0.1-1.0 K/uL Eosinophils # (Auto) 0.08 0.00-0.70 K/uL Basophils # (Auto) 0.03 0.00-0.20 K/uL Absolute Immature Granulocyte (auto 0.01 0-1 K/uL Phosphorus Level 2.8 2.5-4.9 mg/dL Magnesium Level 1.70 L 1.80-2.40 mg/dL Amylase Level 31 25-115 U/L Lipase 29 16-77 U/L Current Medications Medications (Trade) Dose Ordered Sig/Connie Route PRN Reason Start Time Stop Time Status Last Admin Dose Admin Acetaminophen (TYLenol 325MG TAB) 650 mg Q6H PRN PO FEVER/MILD PAIN LEVEL 1-3 12/13/24 05:30 01/12/25 05:29 Acetaminophen (TYLenol 650MG SUPPOSITORY) 650 mg Q6H PRN RC FEVER / MILD PAIN 1-3 IF NPO 12/13/24 05:30 01/12/25 05:29 Ceftriaxone Sodium (Rocephin 2gm Inj) 2 gm Q24H IVPB 12/14/24 03:00 12/13/24 05:59 DC Dextrose (D50w) 50 ml AD PRN IV HYPOGLYCEMIA PROTOCOL 12/13/24 06:00 01/12/25 05:59 Docusate Sodium (COLace 100MG CAP) 100 mg BID PRN PO c 12/13/24 05:30 01/12/25 05:29 Glucagon (Glucagon 1mg Kit) 1 mg AD PRN IM HYPOGLYCEMIA PROTOCOL 12/13/24 06:00 01/12/25 05:59 Hydromorphone HCl (DiLAUDid 1MG INJ) 1 mg Q4H PRN IVP SEVERE PAIN (7-10) 12/15/24 14:30 12/20/24 14:29 Ketorolac Tromethamine (toRADol) 30 mg Q6H PRN IM SEVERE PAIN (7-10) 12/13/24 05:30 12/15/24 14:35 DC 12/14/24 20:24 30 MG Labetalol HCl (TRANdate 20MG SYG) 10 mg Q2H PRN IV SBP GREATER THAN 160 12/13/24 05:30 01/12/25 05:29 Lactated Ringer's 1,000 ml @ 75 mls/hr [id number] IV 12/13/24 05:30 12/14/24 08:42 DC 12/13/24 22:04 75 MLS/HR Lactated Ringer's 1,000 ml @ 125 mls/hr Q8H IV 12/14/24 09:00 01/13/25 08:59 12/15/24 09:13 125 MLS/HR Lactulose (Constulose 20gm/ 30ml Udcup) 20 gm Q6H PRN PO CONSTIPATION 12/13/24 05:30 01/12/25 05:29 12/14/24 20:23 20 GM Magnesium Sulfate 50 ml @ 0 mls/hr PROTOCOL IV 12/14/24 10:00 01/13/25 09:59 Magnesium Sulfate 50 ml @ 0 mls/hr PROTOCOL PRN IV MAGNESIUM PROTOCOL 12/13/24 06:00 12/14/24 09:48 DC 12/14/24 02:24 15 MLS/HR Midodrine (PROAMatine 5 MG TABLET) 10 mg TID PO 12/14/24 09:00 01/13/25 08:59 12/15/24 14:44 10 MG Morphine Sulfate (morPHINE 4MG SYG) 4 mg Q4H PRN IVP SEVERE PAIN (7-10) 12/13/24 05:30 12/15/24 14:34 DC 12/13/24 18:26 4 MG Ondansetron HCl (zoFRAN 4MG INJ) 4 mg Q6H PRN IVP NAUSEA/VOMITING 12/13/24 05:30 01/12/25 05:29 Oxycodone/ Acetaminophen (perCOCET) 1 tab Q4H PRN PO MODERATE PAIN (4-6) 12/15/24 14:30 12/22/24 14:29 12/15/24 14:44 1 TAB Piperacillin Sod/ Tazobactam Sod (Zosyn 3.375gm+NS 50ml) 3.375 gm Q8H IVPB 12/13/24 13:00 12/15/24 14:38 DC 12/15/24 04:33 3.375 GM Piperacillin Sod/ Tazobactam Sod (Zosyn 3.375gm+NS 50ml) 3.375 gm Q8H IVPB 12/15/24 15:00 12/25/24 14:59 12/15/24 14:53 3.375 GM Potassium Chloride 100 ml @ 100 mls/hr AD PRN IV POTASSIUM PROTOCOL 12/13/24 06:00 01/12/25 05:59 Potassium Chloride (K-Dur/Klor-Con 20meq) 20 meq AD PRN PO POTASSIUM PROTOCOL 12/13/24 06:00 01/12/25 05:59 12/13/24 22:05 20 MEQ Potassium Chloride (KCl 10% Elixir 20meq/15ml) 20 meq AD PRN PO POTASSIUM PROTOCOL 12/13/24 06:00 01/12/25 05:59 Sodium Chloride 1,000 ml @ 0 mls/hr Q0M IV 12/13/24 23:30 12/14/24 06:50 DC 12/14/24 01:10 1,000 MLS/HR Sodium Chloride 1,000 ml @ 0 mls/hr Q0M IV 12/14/24 01:30 12/14/24 06:50 DC Sodium Chloride (NS 50ml) 50 ml AD IV 12/13/24 13:00 12/13/24 05:58 DC Temazepam (restORIL 15 MG CAP) 15 mg HS PRN PO INSOMNIA/SLEEP 12/13/24 05:30 01/12/25 05:29 DIAGNOSTICS / RADIOLOGY: [place] [address] [place] [id number] IMAGING REPORT Signed PATIENT: SOL GARCIA MR#: [id number] : 1990 SEX: F AGE: 34 LOCATION: [facility] ORDER [id number] STATUS: ADM IN [facility] REPORT#: [id number] SERVICE [id number] REASON: CHOLECYSTITIS ORDERING PHYSICIAN: AMBER COLEY MD PROCEDURE: HIDAWO - NM HIDA WO EF/CCK Examination Hepatobiliary study History CHOLECYSTITIS (Hx) / CHOLECYSTITIS, Static Images (DICOM Hx) (DICOM Hx) Technique Tc-99m mebrofenin were administered intravenously followed by acquisition of planar images of the abdomen. Findings Following administration of radiotracer, there is prompt appearance of normal hepatic contours, followed by appearance of activity in unremarkable appearing bile ducts. There is nonvisualization of the gallbladder at the conclusion of the examination reflecting acute cholecystitis. IMPRESSION: 1. Nonvisualization of the gallbladder consistent with acute cholecystitis. /Anatone DICTATED BY: DEEPALI URENA Jr., MD DATE: 12/14/242117 ELECTRONICALLY SIGNED BY: DEEPALI URENA Jr., MD DATE: 12/14/242117 ASSESSMENT: Acute cholelithiasis with cholecystitis, POA Hypotension, cause unknown Acute abdominal pain/Epigastric pain/sternal chest pain, POA Acute uncomplicated cystitis, POA Anemia PLAN: Acute cholelithiasis with cholecystitis, POA * Patient underwent laparoscopic cholecystectomy * Her HIDA scan showed nonvisualization of the gallbladder consistent with acute cholecystitis * patient on clear liquid and advanced as tolerated, that IV Dilaudid 1 mg q4h prn, PO Percocet 5/325 1 tab q4H prn Acute uncomplicated cystitis, POA * Ceftriaxone has been discussed * Patient's urine culture positive for Klebsiella pneumoniae sensitive to everything except nitrofurantoin Anemia * Patient's hemoglobin today at 9.5 * No therapy prescribed at this time but will keep an eye Hypotension, cause unknown * Patient's blood pressure has been running low with her systolic ranging between 84-98 and diastolic between 50 to 59 * Gave her saline bolus and gave her midodrine * Orthostatic vital signs have been performed and the waiting on cortisol lab results ATTESTATION BY PHYSICIAN I have seen and examined the patient. I reviewed the documentation, medical decision making, and treatment plan as noted by the resident provider above. I agree with the findings and plan of care. CLARA FITZPATRICK MD, ABHINAV MD Dec 15, 2024 17:30
[2024-12-16] VITALS: BP 95/64; PULSE 87; RESP 16; TEMP 98.3
[2024-12-16 03:59] LABS: NUCLEATED RED BLOOD CELLS 0.0 % (0.0-0.19); PLATELET COUNT (AUTO) 223.0 K/uL (130-400); RED BLOOD CELL COUNT(AUTO) 3.78 MIL/uL (4.00-5.50); RED CELL DISTRIBUTION WIDTH 15.3 % (11.0-15.5); WHITE BLOOD COUNT (AUTO) 9.1 K/uL (4.8-10.8)
[2024-12-16 04:00] VITALS: BP 96/58; PULSE 77; RESP 16; TEMP 98.2
[2024-12-16 04:21] LABS: ASPARTATE AMINOTRANSFERASE 47.0 U/L (10-37); CREATININE 0.5 mg/dL (0.5-1.0); GLOMERULAR FILTR. RATE CALC 126.0 mL/min (>90); GLUCOSE,RANDOM 88.0 mg/dL (70-105); SODIUM SERUM 135.0 mmol/L (136-145); TOTAL PROTEIN, SERUM 6.2 g/dL (6.0-8.3); UREA NITROGEN, BLOOD 2.0 mg/dL (7-18)
[2024-12-16 08:08] VITALS: BP 96/65; PULSE 68; RESP 18; TEMP 98.4
[2024-12-16] MEDS: MAGNESIUM 2GM PREMIX 50ML 50 ML IV ONE (08:50)
[2024-12-16 11:33] VITALS: BP 105/70; PULSE 98; RESP 18; TEMP 98.1
[2024-12-16 11:38] LABS: % IRON SATURATION 9.5 % (22-44); IRON, SERUM 25.0 mcg/dL (50-170)
[2024-12-16] MEDS ORDERED: FERS325 PO (14:53)
[2024-12-16] MEDS ORDERED: LEVO750T68 PO (14:53)
[2024-12-16] MEDS ORDERED: MAGN400T53 PO (14:53)
[2024-12-16 15:42] VITALS: BP 96/49; PULSE 72; RESP 18; TEMP 98.1
--- NOTE | 2024-12-16 16:35 | NUR ---
DC NOTE DC INSTRUCTIONS AND FOLLOW UP APPOINTMENT GIVEN WITH PRINTED AND E-SCRIPT PRESCRIPTIONS GIVEN TO PT AND SPOUSE AT BEDSIDE. PIV REMOVED, CATHETER INTACT DENIES ANY PAIN OR DISCOMFORT. PT IS WHEELED DOWNSTAIRS WITH SUPERVISOR WINTER INT VIA PRIVATE CAR. NO FURTHER COMMENTS OR CONCERNS AT THIS TIME.
[2024-12-16] MEDS ORDERED: ACET-2743 PO (17:32)
--- NOTE | 2024-12-16 19:12 | DS ---
Discharge Summary Hospital Course Summary: Ms Gamal Black is a 34-year-old who presented to the ER with complaints of upper abdominal, epigastric, midsternal stabbing chest pain and nausea for past 3 days. The patient denied diaphoresis, syncopal episode, or palpitations. Patient is not a smoker. No history of oral contraceptions. Most of her presentation has been upper abdominal pain with cramping and midsternal radiating all the way to the back. She took Motrin and Pepcid and Gas-X with some relief of the abdominal symptoms but her chest symptoms persisted and hence she came in for evaluation. The symptoms that began 3 days ago were around 3:00 a.m. when she ate and laid down immediately. WBC, troponin, and chest x-ray are WNL. UA was positive for leuk EST and nitrites. ED provider reported that the sonogram showed cholelithiasis and acute cholecystitis so she was admitted. In ED the patient received Unasyn IV, Rocephin IV Protonix, Bentyl, Maalox, viscous lidocaine, Zofran, and morphine. Patient reports the pain has improved after the medications but still feels a little sore. Patient was admitted to the 3rd floor, surgery was consulted, patient placed only on Zosyn IV and Toradol for pain. Patient's urine culture came back positive for Klebsiella pneumoniae sensitive to everything except nitrofurantoin we continued the Zosyn she was already placed on. Patient had low blood pressure around 85/50, so we gave her a bolus of sodium chloride and 10 mg midodrine. Her lab work showed her hemoglobin decreased from 11-9.1, magnesium was low at 1.7. So we placed her on magnesium protocol and gave her magnesium supplementation. Her procalcitonin and lactic acid levels were within normal range, while her C-reactive protein was high at 21.30. Patient underwent MRCP and HIDA scan the MRCP showed cholelithiasis with cholecystitis and no choledocholithiasis while HIDA scan showed nonvisualization of gallbladder consistent with acute cholecystitis. She was scheduled for a laparoscopic cholecystectomy which was performed yesterday. She was started on clear liquid and advanced as tolerated diet with IV Dilaudid1 mg q.4h p.r.n. as well as Percocet PO 09/3250 tab q.4h p.r.n. she started walking on the same day in the evening after her surgery. She had a pleasant recovery without any complications. We discharged her home with acetaminophen 500 mg for pain, Levaquin for 5 days for the UTI and also magnesium and iron supplementation. She was also recommended to visit her PCP within 2-3 days, her surgeon within 2 weeks as well as her OBGYN as she has heavy menstruation during the 1st 2 days of her menstrual cycle which could be the cause of her anemia. Personnel Associate(s): Surgery: AMBER COLEY MD: PROCEDURE PERFORMED: Laparoscopic cholecystectomy. POSTOPERATIVE DIAGNOSES: Acute Cholecystitis, Cholelithiasis Procedure(s): [place] [address] [address] IMAGING REPORT Signed PATIENT: SOL GARCIA MR#: [id number] : 1990 SEX: F AGE: 34 LOCATION: [facility] ORDER 5 STATUS: [facility] REPORT#: [id number] SERVICE 5 REASON: CHEST PAIN ORDERING PHYSICIAN: AILYN HORTON MD PROCEDURE: CXR1VW - CHEST 1VW EXAM: CR Chest, 1 view CLINICAL HISTORY: Chest pain. COMPARISON: Chest radiograph dated 12/16/2014. FINDINGS: The lungs show no infiltrates or other acute findings. No pleural effusion or pneumothorax. The cardiomediastinal silhouette is within normal limits. No acute osseous abnormality. Mild levocurvature of the thoracic spine. IMPRESSION: No acute cardiopulmonary process is evident. No interval changes. /[place] DICTATED BY: DEEPALI URENA Jr., MD DATE: 12/13/24400 ELECTRONICALLY SIGNED BY: DEEPALI URENA Jr., MD DATE: 12/13/24400 [facility] [address] [place] [address] IMAGING REPORT Addendum PATIENT: SOL GARCIA MR#: [id number] : 1990 SEX: F AGE: 34 LOCATION: [facility] ORDER 5 STATUS: ADM IN REPORT#: [id number] SERVICE REASON: evaluate cholelithiasis ORDERING PHYSICIAN: AILYN HORTON MD PROCEDURE: ABDRUQLTD - US ABDOMINAL RUQ\LTD ADDENDUM REPORT ADDENDUM: Results were shared by telephone at 06:13 am on 12-13-24 and acknowledged by Ailyn Jimenez. /[place] EXAM: Ultrasound Abdomen, Right Upper Quadrant. CLINICAL HISTORY: Evaluate for cholelithiasis. TECHNIQUE: Right upper quadrant sonography performed with image documentation. COMPARISON: None provided. FINDINGS: LIVER: The liver measures 14.3 cm. Normal echogenicity. No focal lesion identified. GALLBLADDER: Distended gallbladder measuring 14.7 cm with a 2 cm non-mobile stone impacted at the neck. Gallbladder wall thickening with edema (5 mm). Multiple gallstones and sludge noted. COMMON BILE DUCT (CBD): Dilated to 6 mm, which is at the upper limit of normal. Proximal ductal obstruction is suspected, possibly by the gallstones. PANCREAS: The tail is obscured by bowel gas. The visualized portion of the pancreas is unremarkable. RIGHT KIDNEY: Measures 12.4 ??? 4.5 ??? 4.3 cm. Normal renal contours. No evidence of hydronephrosis, calculi, or mass. IMPRESSION: Cholelithiasis with acute cholecystitis. Borderline dilatation of the CBD could be secondary to proximal ductal obstruction by the gallstones. /[place] DICTATED BY: DEEPALI URENA Jr., MD DATE: 12/13/24613 ELECTRONICALLY SIGNED BY: DATE: EXAM: Ultrasound Abdomen, Right Upper Quadrant. CLINICAL HISTORY: Evaluate for cholelithiasis. TECHNIQUE: Right upper quadrant sonography performed with image documentation. COMPARISON: None provided. FINDINGS: LIVER: The liver measures 14.3 cm. Normal echogenicity. No focal lesion identified. GALLBLADDER: Distended gallbladder measuring 14.7 cm with a 2 cm non-mobile stone impacted at the neck. Gallbladder wall thickening with edema (5 mm). Multiple gallstones and sludge noted. COMMON BILE DUCT (CBD): Dilated to 6 mm, which is at the upper limit of normal. Proximal ductal obstruction is suspected, possibly by the gallstones. PANCREAS: The tail is obscured by bowel gas. The visualized portion of the pancreas is unremarkable. RIGHT KIDNEY: Measures 12.4 ??? 4.5 ??? 4.3 cm. Normal renal contours. No evidence of hydronephrosis, calculi, or mass. IMPRESSION: Cholelithiasis with acute cholecystitis. Borderline dilatation of the CBD could be secondary to proximal ductal obstruction by the gallstones. /[place] DICTATED BY: DEEPALI URENA Jr., MD DATE: 12/13/24608 ELECTRONICALLY SIGNED BY: DEEPALI URENA Jr., MD DATE: 12/13/24608 [place] [id number] IMAGING REPORT Signed PATIENT: SOL GARCIA MR#: [id number] : 1990 SEX: F AGE: 34 LOCATION: [facility] ORDER 1439 STATUS: ADM IN REPORT#: [id number] SERVICE 1434 REASON: CHOLECYSTITIS ORDERING PHYSICIAN: AMBER COLEY MD PROCEDURE: MRCP WWO - MRCP(ABDWWO)CHOLANGIOPANCREATO EXAM: MRCP with and without Intravenous Contrast. CLINICAL HISTORY: Cholecystitis. TECHNIQUE: Multisequence, multiplanar magnetic resonance images of the abdomen. Intravenous contrast was administered. COMPARISON: Ultrasound abdomen right upper quadrant of the same date. FINDINGS: The gallbladder is grossly distended, measuring 12.5 cm in the maximum craniocaudal dimension. There is a 2.6 cm calculus with edematous moreno and pericholecystic fluid. No intrahepatic biliary ductal dilation is present. The cystic duct and right and left hepatic ducts are unremarkable. The common bile duct is nondilated. No common bile duct obstruction. Normal pancreatic duct. No biliary strictures are present. No choledocholithiasis. No pleural effusion. There is no focal abnormality appreciated within the liver, pancreas, spleen, adrenals, or kidneys. There is no obvious bowel wall thickening. No abdominal aortic aneurysm. No lymphadenopathy. Trace fluid in the hepatorenal pouch. There is no acute osseous abnormality. IMPRESSIONS: 1. Cholelithiasis with cholecystitis. 2. No choledocholithiasis. 3. Streak fluid in the hepatorenal pouch. No gross interval changes. /[place] DICTATED BY: DEEPALI URENA Jr., MD DATE: 12/14/24309 ELECTRONICALLY SIGNED BY: DEEPALI URENA Jr., MD DATE: 12/14/24309 [place] [address] IMAGING REPORT Signed PATIENT: SOL GARCIA MR#: [id number] : 1990 SEX: F AGE: 34 LOCATION: [facility] ORDER 1439 STATUS: ADM IN HOSPITAL REPORT#: [id number] SERVICE 1434 REASON: CHOLECYSTITIS ORDERING PHYSICIAN: AMBER COLEY MD PROCEDURE: HIDAWO - NM HIDA WO EF/CCK Examination Hepatobiliary study History CHOLECYSTITIS (Hx) / CHOLECYSTITIS, Static Images (DICOM Hx) (DICOM Hx) Technique Tc-99m mebrofenin were administered intravenously followed by acquisition of planar images of the abdomen. Findings Following administration of radiotracer, there is prompt appearance of normal hepatic contours, followed by appearance of activity in unremarkable appearing bile ducts. There is nonvisualization of the gallbladder at the conclusion of the examination reflecting acute cholecystitis. IMPRESSION: 1. Nonvisualization of the gallbladder consistent with acute cholecystitis. /[place] DICTATED BY: DEEPALI URENA Jr., MD DATE: 12/14/242117 ELECTRONICALLY SIGNED BY: DEEPALI URENA Jr., MD DATE: 12/14/242117 Assessment/Plan: ASSESSMENT: Acute cholelithiasis with cholecystitis, POA Hypotension, cause unknown Acute abdominal pain/Epigastric pain/sternal chest pain, POA Acute uncomplicated cystitis, POA Anemia PLAN: Admission Date: 12/13/24 Discharge Date: 12/16/24 Disposition: Home Condition: Stable Activity: As tolerated Home medications: Continued Discharge medications: Acetaminophen 500 mg p.o. p.r.n., ferrous sulfate 325 mg p.o. t.i.d., levofloxacin 250 mg p.o.5 days, magnesium oxide 400 mg p.o. Follow-up appointment: Follow up with PCP within 2-3 days of discharge Follow up with surgeon within 2-3 weeks of discharge Follow-up with OBGYN within 2-3 weeks of discharge We reinforced the importance of medication adherence and follow-up appointments. Discharge Instructions: Keep Dressing clean/ DRY Do not lift any heavy objects Call 911 or go to ER if you develop fever, severe abdominal pain or bloating, nausea or vomiting that does not improve, redness swelling, or pus from the incision site, shortness of breath or chest pain Home Medications: Active Scripts Acetaminophen (Tylenol Extra Strength) 500 Mg Tablet, 500 MG PO AD for pain, #30 TAB PRN Prov:ANUM JACOBO MD 12/16/24 Levofloxacin (Levaquin 750Mg Tabs) 750 Mg Tablet, 250 MG PO AD for 5 Days, #5 TAB one per day for 5 days Prov:ANUM JACOBO MD 12/16/24 Ferrous Sulfate (Ferrous Sulfate) 325 Mg (65 Mg Iron) Ectab, 325 MG PO TID for 30 Days, #90 TAB.EC take with orange juice which may help the absorption Do not take it with milk, cheese, calcium pills or antacids Prov:ANUM JACOBO MD 12/16/24 Magnesium Oxide (Magnesium Oxide) 400 Mg Tablet, 1 TAB PO DAILYDINNER for 7 Days, #7 TAB 0 Refills Prov:ANUM JACOBO MD 12/16/24 Reported Medications Simethicone (Gas Relief) 80 Mg Tab.chew, 80 MG PO Q6HPRN, TAB.CHEW 12/13/24 Discontinued Reported Medications Cephalexin Monohydrate (Keflex) 500 Mg Cap, 500 MG PO QID, CAP 05/28/18 New Medications: Acetaminophen (Tylenol Extra Strength) 500 Mg Tablet 500 MG PO AD for pain, #30 TAB PRN Ferrous Sulfate (Ferrous Sulfate) 325 Mg (65 Mg Iron) Ectab 325 MG PO TID for 30 Days, #90 TAB.EC take with orange juice which may help the absorption Do not take it with milk, cheese, calcium pills or antacids Levofloxacin (Levaquin 750Mg Tabs) 750 Mg Tablet 250 MG PO AD for 5 Days, #5 TAB one per day for 5 days Magnesium Oxide (Magnesium Oxide) 400 Mg Tablet 1 TAB PO DAILYDINNER for 7 Days, #7 TAB 0 Refills Continued Medications: Simethicone (Gas Relief) 80 Mg Tab.chew 80 MG PO Q6HPRN, TAB.CHEW Time spent arranging discharge: 31-60 minutes ATTESTATION BY PHYSICIAN I have seen and examined the patient. I reviewed the documentation, medical decision making, and treatment plan as noted by the resident provider above. I agree with the findings and plan of care. CLARA FITZPATRICK MD, ABHINAV MD Dec 16, 2024 19:12
== END 2024-12-16 16:33 | disposition home or self-care (01) | DRG 418 ==
LOC: EDH 01:24 → EDHIP 04:46 → 3BH 09:40
PROVIDERS: ADMIT Internal Medicine; ATTEND Internal Medicine
PROC: 0FT44ZZ Resection of Gallbladder, Percutaneous Endoscopic Approach (ICD-10-PCS; principal; 2024-12-15 10:10)
DX: K80.00 Calculus of gallbladder with acute cholecystitis without obstruction (principal); N30.00 Acute cystitis without hematuria; B96.1 Klebsiella pneumoniae [K. pneumoniae] as the cause of diseases classified elsewhere; D64.9 Anemia, unspecified; K82.8 Other specified diseases of gallbladder; I95.9 Hypotension, unspecified
CPT/HCPCS: 36415; 71045; 74183; 76705; 78226; 80048; 80053; 80305; 81001; 81025; 82150; 82533; 82550; 83540; 83550; 83605; 83690; 83735; 84100; 84145; 84484; 85025; 85027; 85610; 85730; 86140; 86850; 86900; 86901; 87086; 87186; 93005; 99285; A4450; A9537; G0378; J0295; J0690; J0696; J1885; J2270; J2405; J2543; J3475; J3490; J7030; J7120; A4216; A4222; A4223; A4649; A4930; C1769; J0665